=== PATIENT | male | born 1950 | race Caucasian/White ===

== ENCOUNTER 2017-04-17 07:08 | Inpatient (IN) | payer MEDICARE, OTHER ==
[~2017-04-17] VITALS: Ht 180.3 cm; Wt 56.3 kg
[2017-04-17] VITALS (15 sets, daily range): BP systolic 57–125; BP diastolic 43–90; PULSE 85–156; RESP 16–26; O2SAT 90–100
[2017-04-17] MEDS ORDERED: Azithromycin Inj 500 MG in Dextrose 5% w/Vial Mate 250 ML IV ONE (07:20)
[2017-04-17] MEDS ORDERED: MethylprednisoLONE Sodium Succinate 62.5 mg/mL 2 mL Inj IVPUSH ONE (07:20)
[2017-04-17] MEDS ORDERED: cefTRIAXone Inj 2,000 MG in Dextrose 5% Minibag Plus 50 ML IV ONE (07:20)
[2017-04-17] MEDS ORDERED: Adenosine 3 mg/mL 2 mL Inj ONE ×2 (07:31→07:33)
[2017-04-17 07:39] LABS: BASOPHILS % (AUTO) 0.1 % (0-3); EOSINOPHILS % (AUTO) 0 % (0-5); MONOCYTES % (AUTO) 16.2 % (4-12); Mean Corpuscular Hemoglobin 28.6 pg (27.0-35.0); Mean Corpuscular Volume 88.2 fL (81-100); Platelet Count 354 bil/L (150-400)
--- NOTE | 2017-04-17 07:45 | ED.REPORT ---
HPI-Dyspnea / Wheezing Date of Service Apr 17, 2017 ED Provider: Justo Sharma MD Patient is a 67 year old male with no known medical hx who presents to the ED via EMS intubated after he was found with severe respiratory distress with a possible CPR by family at home. Per family, pt has been experiencing SOB for the past 3 days. When pt's went to the garage to check on him this morning , he was found unresponsive. It is reported that the pt does not take care of his health and has not been to a doctor in quite some time. states that since the pt retired, he "lays on the couch and smokes." They also report that he has always been thin but for the past 5 years he doesn't eat and will only take meal replacement shakes. He does not have a known hx of DM or asthma. He has not been experiencing fever, vomiting, or any other symptoms. would like maximum interventions for the pt. He was given 20 etomidate and 75 succs (0705) en route. Nursing Notes Stated Complaint: UNRESPONSIVE Chief Complaint: Respiratory Distress Nursing Notes Reviewed: Yes Allergies: Coded Allergies: No Known Allergies (Unverified , 04/17/17) No Active Prescriptions or Reported Meds General Time Seen by MD: 07:14 Chief Complaint Other (Respiratory distress) Hx Obtained From: Spouse, Son, EMS Unable to Obtain Hx: Patient condition (Intubated ) Arrived By: Ambulance Sudden in Onset?: No Onset Occurred: 3 days ago Symptom Duration: Since onset Recent Healthcare: No recent doctor visit, No recent hospitalization Past Medical History Past Medical History Notes: Limited hx obtained from and son who report no known medical diagnoses. Smoking History Current Every Day Smoker Social History Other Social History: Good social support, Unable to Obtain History Past medical history, Past surgical history, Family history, Smoking history, Social history, Occupation, Ambulatory status Review of Systems Unable to Obtain ROS Patient condition, Intubated Physical Exam Initial Vital Signs Vital Signs (First) Date Time Temp Pulse Resp B/P Pulse Ox O2 Delivery O2 Flow Rate FiO2 04/17/17 07:21 36.3 156 18 125/90 Mechanical Ventilator 04/17/17 07:58 95 Initial VS: Reviewed, Vital signs abnormal Head / Eyes: Atraumatic, Normocephalic Abdomen / GI: Soft Alertness: Positive: Sedated Appearance / Presentation: Positive: Cachectic Neck: Atraumatic Arrived in C-collar for intubation en route Resp Distress / Stridor: Positive: Intubated Heart Rate / Rhythm: Positive: Tachycardia Peripheral edema 1+ at ankles Extremities cold Lower Extremity / Pelvis / MS: No deformity No calf swelling. Skin: Atraumatic, Dry Mental Status: Positive: Pharmacologically sedated Interpretation & Diagnostics Interpretation & Diagnostics: Discussed pt's case. Accepts admit. Lab Results Interpretation Result Diagram: 04/17/17 0729 04/17/17 1220 Test 04/17/17 07:29 04/17/17 08:00 White Blood Count 13.5th/mm3 (3.8-10.1) Red Blood Count 4.40mil/mm3 (4.40-5.80) Hemoglobin 12.6g/dL (13.8-17.2) Hematocrit 38.8% (41.0-50.0) Mean Corpuscular Volume 88.2fL (81-100) Mean Corpuscular Hemoglobin 28.6pg (27.0-35.0) Mean Corpuscular Hemoglobin Concent 32.5% (32.0-37.0) Red Cell Distribution Width 15.1% (12.3-15.4) Platelet Count 354bil/L (150-400) Neutrophils (%) (Auto) 74.0% (40-74) Lymphocytes (%) (Auto) 9.0% (14-46) Monocytes (%) (Auto) 16.2% (4-12) Eosinophils (%) (Auto) 0% (0-5) Basophils (%) (Auto) 0.1% (0-3) Prothrombin Time 12.6sec (8.1-12.5) Prothromb Time International Ratio 1.17ratio Magnesium Level 2.2mg/dL (1.6-2.6) Total Creatine Kinase 52U/L (21-232) Troponin T 0.010ug/L (0.0-0.011) Pro-B-Type Natriuretic Peptide 3608pg/mL (0-376) Prealbumin 5mg/dL (20-40) Triglycerides Level 93mg/dL (0-149) Procalcitonin 0.24ng/mL (0.00-0.08) Thyroid Stimulating Hormone (TSH) 3.740uIU/mL (0.450-4.500) Urine Color Dark yellow (YELLOW) Urine Appearance Cloudy (CLEAR,HAZY) Urine pH 6.0 (5.0-8.0) Urine Specific [place] 1.025 (1.003-1.035) Urine Protein 100mg/dL (NEG,TRACE) Urine Glucose (UA) Negativemg/dL (NEGATIVE) Urine Ketones Negativemg/dL (NEGATIVE) Urine Occult Blood Large (NEGATIVE) Urine Nitrite Negative (NEGATIVE) Urine Bilirubin Negative (NEGATIVE) Urine Urobilinogen 4.0mg/dL (NORMAL) Urine Leukocyte Esterase Negative (NEGATIVE) Urine RBC 11-50/hpf (0-2) Urine WBC 0-5/hpf (0-5) Urine Epithelial Cells Occasional/hpf (NONE-MOD) Urine Crystals Oxalic acid crystals (NONE Urine Bacteria Few/hpf (NONE-FEW) Urine Hyaline Casts 5/20/lpf (NONE) Urine Granular Casts None seen (NONE SEEN) Urine Waxy Casts None seen (NONE SEEN) Urine Red Blood Cell Casts None seen (NONE SEEN) Urine White Blood Cell Casts None seen (NONE SEEN) Urine Mucus Present (None Seen) Urine Trichomonas None seen (NONE SEEN) Urine Yeast None (NONE SEEN) Urinalysis Comment None Urine Culture Reflexed Not indicated ECG Interpretation ECG Interpretation: Sinus tachycardia rate 107 Left atrial enlargement RBBB Lateral infarct, age indeterminate Time: 07:42 Interpreted by: ED physician ABG Interpretation ABG Interpretation: Venous pH 7.128 pCO2 84 pO2 40.3 cHCO3- 26.6 cBase -5.5 Exam Performed by: [facility] pract Exam Interpreted by: ED physician X-Ray Chest Interpretation Chest Xray Interpretation: IMPRESSION: 1. The endotracheal tube tip is 3 cm above the angela. 2. Bilateral interstitial and airspace infiltrates, left greater than right, consistent with pneumonia. 3. Probable loculated pleural effusion seen upper thorax bilaterally. Dictated by: Donny Smith M.D. on 04/17/2017 at 8:35 Approved by: Donny Smith M.D. on 04/17/2017 at 8:38 View: Portable, 1 view Interpretation / Wet Read by: Interpret - Radiologist Chest Xray Interpretation: IMPRESSION: 1. Tubes and lines as described. 2. No pneumothorax. 3. Extensive consolidation of the lungs (left greater than right) is similar to the prior study. Dictated by: Erwin Biggs M.D. on 04/17/2017 at 8:27 Approved by: Erwin Biggs M.D. on 04/17/2017 at 8:30 View: Portable, 1 view Interpretation / Wet Read by: Interpret - Radiologist Procedures Central Line Placement Time: 08:41 Procedure Performed by: ED physician Consent / Setup / Site Prep: Informed consent provided, Consent from spouse , Time-out performed, Oxygen administered, Pulse oximeter applied, volunteer specialist applied, Hand hygiene observed, Max barrier precaution, Sterile drapes applied, Position Trendelenburg Skin Preparation Agent: Hibiclens - Chlorhexidine Local Anesthesia: Lidocaine 1% Procedural Sedation/Analgesia: Sedation: Versed (Due to intubation ) Side / Location / Ultrasound: Internal jugular right, Ultrasound assisted Catheter / Lumen / Technique: Triple lumen, Good blood return, Secured w catheter device Post-Procedure / Complications: Dressing placed, Condition improved, Tolerated procedure well, Patient stable Re-Eval/Medical Decision Med Decision/Clinical Course This gentleman arrives intubated. Family says that he retired 5 years ago and has spent most of the day every day on a couch in the garage smoking cigarettes. No desire or interest in following up with medical providers for any health condition. No significant weight loss over the past year. His oral intake has been much decreased over the past couple of days and finally only because he was unable to resist, para medics were called today. They find him in extreme respiratory distress and intubated in the field. Upon arrival I find him is a cachectic severely malnourished gentleman with a barrel chest comatose with an endotracheal tube in place. Attempts to hydrate him from his presumptively severely dehydrated state resulted in an inadequate blood pressure response therefore central line is established and norepinephrine was instituted in a drip. Chest x-ray shows multiple infiltrates, empiric anabiotic 's were started. Transferred to the ICU. Re-Evaluation/Progress #1: Time of Eval: 07:35 Re-Evaluation/Progress Note: Discussed pt's case with family who is now in the department. Discussed plan for maximum intervention and admission. Patient's understands and agrees with plan. All questions addressed at this time. Re-Evaluation/Progress #2: Time of Eval: 07:42 Re-Evaluation/Progress Note: Narrow complex tachycardia resolved with 6 followed by 12 Adenosine. Pt in Sinus tachycardia after expected pause. Re-Evaluation/Progress #3: Time of Eval: 09:08 Re-Evaluation/Progress Note: Updated family on pt's status. All questions addressed at this time. Consultation : Referral / Consult Name: Roxy Lowery MD Consulted With: Hospitalist Call Returned at: 09:11 Lpn Rn: Will see patient, Agrees with eval, Agrees with plan, Accepts admit Note: Discussed pt's case. Accepts admit. Counseled Regarding: Diagnosis, Need for admission Discharge & Departure Impression: Primary Impression: Respiratory failure Chronicity: acute Respiratory failure complication: unspecified whether with hypoxia or hypercapnia Qualified Code: J96.00 - Acute respiratory failure , unspecified whether with hypoxia or hypercapnia Additional Impressions: Severe dehydration Mass of left lung Acute CHF Congestive heart failure type: unspecified congestive heart failure type Qualified Code: I50.9 - Heart failure, unspecified Severe sepsis Coagulopathy Hematuria Disposition: ADMITTED TO HOSPITAL Discharge Condition All VS Reviewed: Yes Condition: Critical Referrals: NOPCP (PCP) Crit Care Except Billable Proc Time Spent: 30-74 minutes Services Performed: Patient management by me, Time spent at bedside, Reviewing test results, Reviewing imaging, Discussing patient care, Documentation in record, Time with fam/surrogate Critical Care Notes: 52 minutes Scribe Attestation Portions of this note were transcribed by Angelique Hale. I, Dr. Sharma personally performed the history, physical exam and medical decision-making; I reviewed and confirmed the accuracy of the information in the transcribed note. Signed by: Debora Rdz, 04/17/17 Justo Sharma MD Apr 17, 2017 07:45 ANGELIQUE HALE Apr 17, 2017 07:53 Lpn Rn: Will see patient, Agrees with eval, Agrees with plan, Accepts admit Note: Discussed pt's case. Accepts admit. Counseled Regarding: Diagnosis, Need for admission Discharge & Departure Impression: Primary Impression: Respiratory failure Chronicity: acute Respiratory failure complication: unspecified whether with hypoxia or hypercapnia Qualified Code: J96.00 - Acute respiratory failure , unspecified whether with hypoxia or hypercapnia Additional Impressions: Severe dehydration Mass of left lung Acute CHF Congestive heart failure type: unspecified congestive heart failure type Qualified Code: I50.9 - Heart failure, unspecified Severe sepsis Coagulopathy Hematuria Disposition: ADMITTED TO HOSPITAL Discharge Condition All VS Reviewed: Yes Condition: Critical Referrals: NOPCP (PCP) Crit Care Except Billable Proc Time Spent: 30-74 minutes Services Performed: Patient management by me, Time spent at bedside, Reviewing test results, Reviewing imaging, Discussing patient care, Documentation in record, Time with fam/surrogate Critical Care Notes: 52 minutes Scribe Attestation Portions of this note were transcribed by Angelique Hale. I, Dr. Sharma personally performed the history, physical exam and medical decision-making; I reviewed and confirmed the accuracy of the information in the transcribed note. Signed by: Debora Rdz, 04/17/17 Justo Sharma MD Apr 17, 2017 07:45 ANGELIQUE HALE Apr 17, 2017 07:53
[2017-04-17 07:51] LABS: INR 1.17 ratio
[2017-04-17 07:59] LABS: TROPONIN T 0.01 ug/L (0.0-0.011)
--- NOTE | 2017-04-17 08:01 | ABG ---
DateTimeAnalyzed 07:53:00 -_ pH ____7.128 - 7.320 7.420 pCO2 ___83.9__ -mmHg 41.0 51.0 pO2 ___40.3__ -mmHg 26.0 49.0 HCO3- ___26.6__ -mmol/L 22.0 26.0 ABE ___-5.5__ -mmol/L -2.0 2.0 tHb ___15.7__ -g/dL 12.0 18.0 O2Hb ___55.2__ -% COHb ____3.7__ -% 1.5 MetHb ____0.8__ -% 0.4 1.5 sO2 ___57.8__ -% 40.0 70.0 FIO2 __100.0__ -% SIMV __460.0__ -Rate PEEP ____5.0__ -cmH2O Set_RR ___20.0__ -b/min Drawn By lab - Date/Time Notified____ 08:01:00 -_ Oxygen Device 1 crossvent - Notified By jj - Notified Whom dr tiffany - B 755 -mmHg tO2 ___12.2__ -Vol% Good test N/A -
[2017-04-17 08:21] LABS: Magnesium 2.2 mg/dL (1.6-2.6)
[2017-04-17 08:25] LABS: APPEARANCE,URINE CLOUDY (CLEAR,HAZY); COLOR,URINE DARK YELLOW (YELLOW)
[2017-04-17 08:26] LABS: OCCULT BLOOD,URINE LARGE (NEGATIVE)
[2017-04-17] MEDS ORDERED: Norepinephrine 8,000 mCg/250 mL NS Premix IV ONE (08:36)
--- NOTE | 2017-04-17 08:40 | DRSVH ---
PROCEDURE: X-RAY CHEST ONE VIEW, PORTABLE ([id number]) INDICATIONS: intubated TECHNIQUE: One view of the chest was acquired. COMPARISON: None. FINDINGS: Surgical changes and devices: There is a symmetrical tube with the tip 3 cm above angela. Lungs and pleura: Bilateral diffuse interstitial and airspace opacities, left with the right, consis tent with pneumonia. Possible loculated pleural effusions in the left and right upper thorax. No pneu mothorax. Mediastinum: Mediastinal contours appear normal. Heart size is normal. Bones and chest wall: No suspicious bony lesions. Overlying soft tissues appear unremarkable. IMPRESSION: 1. Endotra Ultravist 3 cm above the angela. 2. Bilateral interstitial and airspace infiltrates, left greater than right, consistent with pneumoni a. 3. Probable loculated pleural effusion seen upper thorax bilaterally. Dictated by: Donny Smith M.D. on 04/17/2017 at 8:35 Approved by: Donny Smith M.D. on 04/17/2017 at 8:38
[2017-04-17] MEDS ORDERED: 0.9% Sodium Chloride 1,000 ML IV ONE ×2 (09:02→10:25)
[2017-04-17] MEDS ORDERED: levoFLOXacin Inj 750 MG in IV Premix 1 EACH IV ONE (09:05)
[2017-04-17] MEDS ORDERED: Vancomycin Dose per Pharmacist XX ONE (09:05)
[2017-04-17] MEDS ORDERED: Piperacillin-Tazo 3.375 Gm Inj 3.375 GM in Dextrose 5% Minibag Plus 50 ML IV ONE (09:05)
[2017-04-17] MEDS ORDERED: Vancomycin Inj 1,250 MG in 0.9% Sodium Chloride 250 ML IV ONE (09:15)
[2017-04-17] MEDS: Norepineph 8,000 mCg/250 mL NS 8,000 MCG in IV Premix 1 EACH IV SCH ×2 (09:17→16:56)
[2017-04-17] MEDS ORDERED: Atropine 1 mg/10 mL (Code) Syringe ONE (09:18)
--- NOTE | 2017-04-17 09:31 | DRSVH ---
PROCEDURE: X-RAY CHEST ONE VIEW, PORTABLE ([id number]) INDICATIONS: post central line TECHNIQUE: One view of the chest was acquired. COMPARISON: [facility], CR, XR CHEST 1VW (PORTABLE), 04/17/2017, 7:21. FINDINGS: Surgical changes and devices: An endotracheal tube is identified with the tip overlying the trachea, approximately 3.4 cm above the level of the angela. A right-sided central line catheter is identifie d with its tip positioned at the atriocaval junction. A nasogastric tube is seen extending below the diaphragm. Lungs and pleura: The aeration of the lungs is similar to the prior study with extensive left pulmona ry consolidation that is more prominent within the left upper lobe. There probably is a left-sided p leural effusion and probably are calcified pleural plaques. Consolidation of the right lung apex als o is present with additional patchy areas of airspace disease and interstitial prominence throughout the lungs, which is slightly more prominent along the periphery. Blunting of the right costophrenic angle is present. No definite pneumothorax is appreciated. Mediastinum: The cardiomediastinal silhouette is largely obscured by extensive urinary consolidation. The heart probably is not enlarged. Bones and chest wall: No suspicious bony lesions. Overlying soft tissues appear unremarkable. IMPRESSION: 1. Tubes and lines as described. 2. No pneumothorax. 3. Extensive consolidation of the lungs (left greater than right) is similar to the prior study. Dictated by: Erwin Biggs M.D. on 04/17/2017 at 8:27 Approved by: Erwin Biggs M.D. on 04/17/2017 at 8:30
[2017-04-17] MEDS ORDERED: Sodium Chloride LOK Flush 10 mL Syringe IVFLUSH PRN ×2 (10:35)
--- NOTE | 2017-04-17 10:44 | DRSVH ---
PROCEDURE: CT CHEST WITHOUT CONTRAST ([id number]) INDICATIONS: eval for pulmonary process TECHNIQUE: Noncontrast 5 mm thick sections acquired from the pulmonary apices to the posterior costophrenic angl es. 7 mm thick coronal and sagittal MIP reformats were then acquired. For radiation dose reduction, the following was used: automated exposure control, adjustment of mA and/or kV according to patient size. COMPARISON: None. FINDINGS: Image quality: Adequate. Lungs and pleura: There is a posterior medial left-sided hydropneumothorax with air-fluid level (se 3 im 24). There is a second loculated anterolateral hydropneumothorax. Calcified pleural plaques adjac ent to both sites. There is dense consolidation involving nearly the entire left lung with multiple c entral areas of cavitation the largest of which measures 1.8 CM. There is diffuse interstitial thicke ruchi with focal areas of consolidation throughout the right lower lobe. Bilateral emphysema and biapi sally scarring. There is a possible right apical cavity lesion containing debris or a solid component w hich overall measures 1.7 x 1.9 CM (se 3 im 15). Mediastinum: There is pneumomediastinum greatest superiorly. Heart size is normal. Trace pericardial effusion. There is a mass at the right posterior lateral aspect of the esophagus which measures 2.1 x 2.9 CM (se 2 im 33). Thoracic aorta and central pulmonary arteries are normal in size. Esophagus i s normal in caliber. No hiatal hernia. ET tube, enteric tube, and right IJ CVC with tips in appropr iate locations. Bones and chest wall: No suspicious bony lesions. No vertebral body compression fractures. No axil kaylin or supraclavicular adenopathy by size criteria. Thyroid gland not included on the examination. Abdomen: Visualized upper abdominal solid organs and bowel loops appear normal in the absence of con trast. IMPRESSION: 1. Small anterolateral and posterior medial loculated hydropneumothoraces with associated pleural sally cifications. Moderate pneumomediastinum. 2. Dense consolidation involving the majority of the left lung with cavitation most consistent with s evere pneumonia. There is lesser, moderate consolidation in the dependent right lower lobe which may represent further infection or aspiration. 3. Emphysema with biapical scarring and possible right apical cavitary lesion containing solid compon ent or debris. 4. Small mass at the right lateral aspect of the mid esophagus may represent lymphadenopathy. A CT wi th contrast will be needed for more definitive evaluation. 5. Support lines in the expected locations. Dictated by: Uriel Vargas M.D. on 04/17/2017 at 10:29 Approved by: Uriel Vargas M.D. on 04/17/2017 at 10:42
[2017-04-17] MEDS ORDERED: ASPI-973 PO (11:08)
--- NOTE | 2017-04-17 11:09 | NUR ---
Admit nurse: Admit completed with pt's , pt intubated and unable to provide any info. Per , pt doesn't take any home medications, just takes "regular aspirin a couple of times a day when he has a headache." reports that pt has a poor appetite for the last five years, drinks ensure twice a day and a lot of coffee.
[2017-04-17] MEDS ORDERED: fentaNYL 2,500 mCg/250 mL 2,500 MCG in IV Premix 1 EACH IV PRN (11:10)
[2017-04-17] MEDS ORDERED: fentaNYL-PF 50 mCg/mL 2 mL Inj IVPUSH PRN (11:10)
[2017-04-17] MEDS ORDERED: Lidocaine 1%-Epi 1:100,000 50 mL Inj NERVEBLOCK ONE (11:45)
[2017-04-17] MEDS: Pantoprazole 80 mg/100 mL NS Bolus IV ONE ×4 (12:05→15:08)
[2017-04-17] MEDS ORDERED: Pantoprazole 8 mg/Hr Infusion IV SCH ×2 (12:05)
[2017-04-17] MEDS: Propofol Inj 1,000,000 MCG in IV Premix 1 EACH IV SCH (12:09)
[2017-04-17] MEDS: Chlorhexidine 0.12% 15 mL Oral Solution MT SCH ×3 (12:30→21:01)
--- NOTE | 2017-04-17 13:24 | CONS ---
[address] [address] CONSULTATION REPORT PATIENT: GENET DIAZ : 1950 MR#: [id number] ADMIT: 04/17/2017 JOB ID: [id number] INFECTIOUS DISEASE CONSULTATION: DATE OF SERVICE: 04/17/2017 REQUESTING PHYSICIAN: Roxy Lowery MD I thank Dr. Lowery for this timely consult. REASON FOR CONSULTATION: Respiratory failure, bilateral pulmonary infiltrates and shock. HISTORY OF PRESENT ILLNESS: The patient is an unfortunate, 67-year-old gentleman with a long history of smoking cigarettes and not much else in the way of available history. His and son who were in the room with him supply the details as the patient presented with respiratory failure, was intubated in the ER earlier today. He is now sedated and on the ventilator and can offer no history. The and son relate that five years ago he retired from the [employer] here in [facility]. At that time, he weighed about 165 pounds, was in quite good health despite his heavy smoking. He was able to walk for miles while they were out hunting and in general was in reasonably good health. Unfortunately starting with his care home five years ago, he according to his , "stopped doing everything." The patient basically just spent the next five years on the couch, smoking 2-3 packs of cigarettes a day. There is no history of tobacco use nor illicit drugs. He has not traveled anywhere and basically has not done anything it sounds like, over the past five years. His reports that during this period of inactivity that he progressively lost weight, became weaker and became less capable of any activity. She reports that this was a gradual five year decline which started to get worse about a year ago when he lost even more weight and became even more short of breath. Over the last couple of weeks he has had what was termed a cold which was associated with worsening respiratory difficulties. The says that her refused all entreaties to see a doctor or go to the hospital and has not seen a doctor since he had some minor shoulder surgery about three decades ago. His only medicine is aspirin which he apparently takes in fairly large doses for a variety of aches and pains but no other meds prescription or otherwise. With respect to symptoms, the and son report that the patient has really not complained of much other than progressive weakness, shortness of breath and at times, a cough. He has had a generally poor appetite and has been losing weight steadily and more rapidly recently. He has not apparently complained at all of headaches, sore throat, hemoptysis or GI symptoms, other than he has told his that he has been constipated at times. There has been no report of urinary complaints and just as mentioned, generalized weakness, weight loss, shortness of breath and some cough. The family does report that in the day or so prior to his being brought to the ER for respiratory failure that he had been somewhat confused, but up until that point had been completely sharp, and I spoke to his grandson about this too and he said that he was able to carry on a sustained conversation which made a lot of sense as recently as a few days ago. PAST MEDICAL HISTORY: Completely unknown other than he had some minor right shoulder surgery in the 80s. MEDICATIONS: His only medicine as mentioned is aspirin which he apparently takes in fairly large quantities from time to time. SOCIAL HISTORY: The patient is a lifelong heavy smoker, never consumed alcohol. Did not serve in the . Has not been overseas, and has really not lived anywhere but this local area. He was born in [place], [place] and apparently worked his entire career at [employer]. He lives with his in [place] at this point. FAMILY HISTORY: As far as we can determine is negative for TB; and that is according to his son and his . The patient obviously cannot speak to us and that is negative in first and second-degree relatives. REVIEW OF SYSTEMS: Cannot be done as the patient is intubated and sedated. PHYSICAL EXAMINATION: Reveals a cachectic gentleman who looks really catastrophically ill. He is afebrile, temperature 36.1, pulse 97. He is on the ventilator. Blood pressure is low as 70/47 earlier. He is now on norepinephrine at moderately high doses about 0.2 mcg/kg minute. He is on 60% and 5 of PEEP on the ventilator. Examination of the head shows tremendous temporal wasting and the patient's overall appearance is just skeletal. His BMI is recorded at 16.5 and I am inclined to doubt that, as he looks even more malnourished. His eyes are sunken. There is no conjunctivitis or scleral icterus seen. His pupils are equal. His nose appears normal. I do not see any eschars. Oral endotracheal tube/orogastric tube in good position. His neck is extraordinarily thin without adenopathy or obvious JVD. His neck is reasonably supple. Lungs: Scattered rales and rhonchi throughout both lung george. The left lung sounds worse than the right. Cardiac tones distant. Regular rate and rhythm. Abdomen is extremely wasted and thin. No organomegaly is appreciated. No masses can be palpated. There is no ascites obviously. No inguinal adenopathy. His penis and scrotum appear normal. Coello catheter is present. His extremities are diffusely wasted; both upper and lower extremities. No synovitis is seen. He has some venous stasis changes in lower extremities bilaterally. He has really no dorsal pedal or posterior tibial pulses in his feet. Both feet are cool with poor capillary refill. Neurologic exam cannot be done. The patient overall is unkempt and appears at least recently to have had poor hygiene. LABORATORY DATA: Labs include white count 13.5 with a monocytosis of 16% monos. His creatinine is 0.93. Potassium 5.4. LFTs completely normal interestingly. BNP 3608. Procalcitonin first measure 0.24. Urinalysis: No white cells. He does have hematuria of interest 11-50 red cells. His INR is 1.17. Micro studies include two blood cultures done early this morning and a sputum which has been sent and is pending. IMAGING: We reviewed the chest x-rays and chest CTs in great detail with the Pulmonary Attending and I reviewed these myself on the view screen as well. His chest x-ray and CTs of the chest are incredibly abnormal. He appears to have loculated hydropneumothoraces and associated pleural calcifications, especially on the left. He has a pneumomediastinum as well. There is a diffuse infiltrate that involves almost all the left lung with cavities noted. There is considerable consolidation in the right lung as well with some cavities as well but it is less severe. Emphysema with giant bullae is obviously seen. IMPRESSION: This is an unfortunate gentleman who over the last five years since his care home has had a dramatic decline with progressive weakness, weight loss and respiratory insufficiency. He now presents with a more abrupt process associated with respiratory failure requiring intubation as well as hypotension. Owing to the fact he has had no laboratory studies in greater than 30 years and has not seen a physician, this is truly a black box and that we really have little to operate on. In discussing this case in detail with the Pulmonary attending, we think numerous things are possible including chronic aspiration pneumonia with empyema as well as the possibility of tuberculosis, but there is no exposure for tuberculosis but his chest CT and presentation would not be inconsistent with this process. Other things I would be especially concerned about here would be Nocardia or actinomycosis. If indeed there is an empyema present, then we would be concerned about classic organisms including Streptococcus and especially the Streptococcus milleri group as well as anaerobes. Empyema obviously would require drainage. Additionally I think there is a possibility of a Staph aureus component to this cavitary extensive pneumonia. Other less likely possibilities might include cryptococcal pneumonia and even Pneumocystis can occasionally be seen with this degree of malnutrition though the chest x-ray would be not classic for that process. Fungal processes such as Aspergillus are also possible in a chronic smoker and will need to be addressed. RECOMMENDATIONS: 1. Will be checking basic labs including HIV, hep C, hep B, TSH, and a cortisol. 2. TB studies will be ordered and these will include sputum AFB x3 but with the 1st and 2nd samples to be sent for nucleic acid amplification. These should be sent as soon as possible. 3. Galactomannan will be ordered on the off chance that we have a significant fungal process or Aspergillus process. 4. Fungitell will be ordered. 5. QuantiFERON Gold will be ordered. 6. Sputum Gram stain has already been ordered and is pending. 7. Cryptococcal antigen. 8. MRSA screen of the nares will be ordered. 9. ANCA will be ordered on the off chance that this represents Jonh's granulomatosis though I do not think that is a likely diagnosis here but needs to be excluded. 10. In terms of antibiotics, the patient has been started on azithromycin which I think is unlikely to be of benefit and I would clean up his antibiotics which currently appear to include azithromycin, ceftriaxone, levo, vanco, Zosyn, and instead consolidate to ertapenem as our sole antibiotic while we await additional data. 11. Will continue to follow this extremely ill patient with you. I have discussed this case in detail with the ICU nurse, Respiratory Therapy, the Pulmonary attending, the hospitalist, and the family. I have also recommended the patient be moved to TB isolation until we have back our first nucleic acid implication at which time TB isolation can be continued. The literature suggests that a TB nucleic acid amplification is as good as three sputum AFBs for DC'ing isolation. MTDD
[2017-04-17] MEDS ORDERED: Ondansetron 2 mg/mL 2 mL Inj IVPUSH PRN (14:00)
--- NOTE | 2017-04-17 14:00 | ABG ---
DateTimeAnalyzed 13:57:12 -_ pH ____7.340 - 7.350 7.450 pCO2 ___50.6__ -mmHg 35.0 45.0 pO2 157 -mmHg 80.0 100 HCO3- ___27.3__ -mmol/L 22.0 26.0 ABE ____1.4__ -mmol/L -2.0 2.0 tHb ___10.3__ -g/dL 12.0 18.0 O2Hb ___98.3__ -% COHb ____2.2__ -% 1.5 MetHb ____0.0__ -% 0.4 1.5 sO2 __100.0__ -% 95.0 AaDpO2 __498.6__ -mmHg FIO2 __100.0__ -% Pressure_Support ___30.0__ -cmH2O PEEP ____5.0__ -cmH2O Set_RR 20 -b/min Drawn By nb - Date/Time Notified____ 14:00:00 -_ Oxygen Device 1 VENTILATOR - Notified By ams - Notified Whom dr mathew - K+ ____3.3__ -mmol/L 3.5 5.0 Good test _Positive -
--- NOTE | 2017-04-17 14:34 | DRSVH ---
PROCEDURE: X-RAY CHEST ONE VIEW, PORTABLE ([id number]) INDICATIONS: chest tube placement TECHNIQUE: One view of the chest was acquired. COMPARISON: Merged With [facility], CR, XR CHEST 1VW (PORTABLE), 04/17/2017, 7:21. [facility] pital, CT, CT CHEST WO CON, 04/17/2017, 10:23. Merged With [facility], CR, XR CHEST 1VW (PORTABLE), , 9:13. FINDINGS: Surgical changes and devices: Endotracheal tube, nasogastric tube and right IJ central line are in ex pected position. There is a thoracostomy tube projecting to the left lower hemithorax. Lungs and pleura: There is probable small left residual basilar pneumothorax. The left hemithorax i s near completely opacified. There are diffuse bilateral airspace infiltrates. Small bilateral perfus ions are present. Mediastinum: Lucencies along the trachea is consistent with pneumomediastinum. Heart is partially ob scured. Bones and chest wall: There is a subcutaneous emphysema. No suspicious bony lesions. Overlying soft tissues appear unremarkable. IMPRESSION: 1. Bilateral airspace infiltrates, left within the right. There is near complete opacification of the left hemithorax. The radiographic findings are most consistent with pneumonia although superimposed pulmonary edema could be present. 2. Probable small left basilar pneumothorax. 3. Small bilateral pleural effusions. 4. Support lines/tubes in expected position. 5. Pneumomediastinum and subcutaneous emphysema. Dictated by: Donny Smith M.D. on 04/17/2017 at 14:22 Approved by: Donny Smith M.D. on 04/17/2017 at 14:32
--- NOTE | 2017-04-17 14:43 | NUR ---
NUTRITION ASSESSMENT: ASSESS: Pt is a 67yo M admitted to CCU for respiratory distress. Currently intubated and sedated. Per pt's he has had poor appetite and PO intake x5 years and only drinks 2 Ensure/day. Current wt is 49kg, BMI 15.1kg. Reported UBW ~5years ago was 75kg. Pt has had 34.6% wt loss x 5 years. He has been NPOx1 day. PMHX: smoking LABS: Reviewed. K 5.4, Cl 90, Bun 34, Glu 166, Ca 8.1, Alb 2.7 MEDS: Reviewed. GI: no BM yet SKIN: Abel 8, wound care pending CURRENT WTS: 49.2kg, BMI 15.6kg/m2, IBW: 75.4kg, UBW: 75kg, 34% wt loss x5 years DIET: NPO EST. NEEDS: vent/ wt gain Kcals: 1230-1720kcal/day (25-35kcal/kg) Pro: 75-90g/day (1.5-1.8g/kg) Fluids: ~1230-1475ml/day (25-30ml/kg) NUTRITION DIAGNOSIS: 1.) Inadequate oral intake related to decreased ability to consume sufficient energy as evidenced by current NPO status 2.) Severe pro/kcal malnutrition related to unknown etiology as evidence by reported poor PO intake x5 years, BMI of 15kg/m2 and 34% wt loss x5 years NUTRITION INTERVENTION: 1.) Due to history of poor PO intake, recommend start TF of Jevity 1.5 @ 10ml and hold x24hrs. Pts stomach is likely not use to receiving large amounts of food/fluids at one time so will need to advance TF slowly and monitor labs and GI tolerance. Recommend advance by 10ml q 8 hrs until reach goal rate of 50ml/hr x22hrs to provide 1650kcal and 70gpro (100% kcal and 93% pro needs) 2.) Adjust goal rate based on daily propofol, MONITOR / EVAL: NPO/vent, wt, TF start?, labs, GI, POC, nutrition status. Will continue to monitor per high nutrition risk guidelines
--- NOTE | 2017-04-17 15:05 | PCM.PROC ---
Procedure Note Date of Service: Apr 17, 2017 Pre Procedure Diagnosis: Acute respiratory failure with pneumothorax and pneumomediastinum Septic shock Multilobar pneumonia Post Procedure Diagnosis: Same Procedure: Left thoracostomy tube Provider and Director Of Audiology: Attending: Ajit Anne M.D. Resident: Christofer Jackson DO, R3 Indication for Procedure: Acute respiratory failure with pneumothorax and pneumomediastinum with poor ventilation despite high peak pressures Findings: Patient's plateau pressures decreased from 40-35 to 30 after the tube thoracostomy with tidal volume of 400 Procedural Analgesia: 1% lidocaine with epinephrine: 15 cc used to infiltrate and anesthetize the region Patient is also sedated with propofol and fentanyl Procedure Details: Consent was obtained from the patient's . Risks of massive bleeding, perforation and were discussed. All questions asked and answered. agreed to proceed with the procedure as planned. A time-out was completed verifying correct patient, procedure, site, positioning, and special equipment.. The patient was positioned appropriately for chest tube placement. The patients left chest was prepped and draped in sterile fashion with Chlorhexidine swabs. 1% Lidocaine with Epi was used to anesthetize the surrounding skin area. A 2 cm skin incision was made in the mid-axillary line at the 4th ICS. Utilizing blunt dissection a subcutaneous tunnel was created cephalad just adjacent to the superior rib. The pleural space was entered bluntly and large gush of air was observed. A finger was inserted into the pleural space to check for anatomy and guide tube insertion. Patient was noted have very thick adhesions which were not taken down because of concern for hemorrhage. At least one loculated empyema was entered and evacuated. A 32F thoracostomy tube was inserted and positioned appropriately. The tube was guided superiorly and posteriorly to attempt to break up loculations multiple times. Copious pus was suctioned superiorly. The chest tube was then sutured securely to the skin at 8 cm with 0-vicryl and a sterile dressing applied. A pleurevac was attached to the chest tube and a chest x-ray obtained. Attending was present for the entire procedure. Subcutaneous air present with large air leak on -20 cm water suction. 50 mL of purulent white blood-tinged fluid was obtained and sent for appropriate studies. Impression Left empyema with necrotic pneumonia. Specimen: Thoracic aspirated fluid was sent to lab for pathology and culture Post Procedure Plan: Continue suction and monitor respiratory status. Repeat CXR after procedure Attending Statement Total time of procedure 40 minutes spent manipulating chest cavity with index finger as well as chest tube to breakout pockets of loculated fluid. Merlin Jackson DO Apr 17, 2017 15:05 Ajit Anne MD Apr 17, 2017 16:09
[2017-04-17] MEDS: Ertapenem Inj 1,000 MG in 0.9% Sodium Chloride 50 ML IV SCH (15:06)
[2017-04-17 15:22] LABS: BASOPHILS % (AUTO) 0 % (0-3); EOSINOPHILS % (AUTO) 0 % (0-5); Mean Corpuscular Hemoglobin 28.3 pg (27.0-35.0); Mean Corpuscular Volume 87.8 fL (81-100); Platelet Count 306 bil/L (150-400)
--- NOTE | 2017-04-17 15:25 | PCM.PNMED ---
Subjective Date of Service Apr 17, 2017 Subjective Mr Purdy is a 67 yo M with history of tobacco dependence and probable COPD who presented to the ED by EMS intubated after being found by family to be in respiratory distress. Majority of the note is from ED report and family. Per family members, patient had been experiencing SOB for the past 3-4 days. reports that she has had a cold the past few weeks and patient did have URI like symptoms, but is unable to provide more specific ROS. They note that when patient's went to the garage earlier this morning, she found the patient down and unresponsive. There was some note of possible CPR prior to EMS arrival. Per family, patient has been declining for the past 5 years and has lost almost 30-40 lbs. They state that he previously was able to walk miles without difficulties, but in the past year, he has declined in conditioning. They state that recently, he has been laying on the couch most days and still smoked heavily. He also had been having decrease appetite. In the ED, patient was noted to have received Etomidate and Succinylcholine for his field intubation. A right IJ central line was placed in the ED and he was started on IV Ceftriaxone and Azithromycin for presumed CAP. He continued to be hypotensive and tachycardic despite fluid resuscitations. PaO2 in the emergency department was 40. Admittedly upon arrival to the ICU ventilator was adjusted to low tidal volume ARDS strategy for severe ARDS. Patient underwent emergency left 32 [place]gu[place] thoracostomy tube placement as plateau pressures were as high as 40. A gush of air was obtained upon entering the left chest cavity. Multiple thick adhesions and white thick pus with minimal blood was obtained and sent for appropriate studies. Care was taken not to take down the thick adhesions to avoid massive hemorrhaging. Patient has a large air leak as suspected from his pneumothorax and positive pressure. Follow-up chest x-ray showed some improvement with proper thoracostomy tube placement. Plateau pressures decreased to 30 with a similar tidal volume 400. Patient was placed on pressure control of 30 and continues to have a average tidal volume of 400. Follow-up PaO2 was 157. Exam Vital Signs Vital Sign - Last Date Time Temp Pulse Resp B/P Pulse Ox O2 Delivery O2 Flow Rate FiO2 04/17/17 13:33 81 97/64 100 100 04/17/17 11:25 36.4 22 Mechanical Ventilator Exam Gen.: Frail cachectic elderly male who is intubated and sedated, occasionally opens eyes to noxious stimuli HEENT: Atraumatic, normocephalic, sclera nonicteric, Trach tube in place, poor dentition. PERR L. Pupil is 2 mm bilaterally. Neck: Supple, trachea deviated to the right, no JVD noted CV: Tachycardic w/ regular rhythm, soft systolic murmur Respiratory: Large barrel chested, diffuse bilateral rhonchi and expiratory wheezing with diffuse scattered crackles, decreased lung sounds on the left, Ventilating at rate of 24 Abdomen: Soft, nondistended, decreased bowel sounds, no rashes noted MSK: Extremities are thin and frail, no swollen or tender joints. Neuro: Sedated patient. Localizes to pain. Skin: Cool. Diffusely dry and flaking, early skin breakdown noted on bilateral heel pad and sacral. No rash. Capillary refill 3-4 seconds. Skin tenting. IVs and Medications Medications Reviewed: Medications were reviewed in detail Lab and Diagnostics Result Diagram: 04/17/17 0729 04/17/17 1220 X-Rays, CTs and MRIs PROCEDURE: CT CHEST WITHOUT CONTRAST ([id number]) IMPRESSION: 1. Small anterolateral and posterior medial loculated hydropneumothoraces with associated pleural calcifications. Moderate pneumomediastinum. 2. Dense consolidation involving the majority of the left lung with cavitation most consistent with severe pneumonia. There is lesser, moderate consolidation in the dependent right lower lobe which may represent further infection or aspiration. 3. Emphysema with biapical scarring and possible right apical cavitary lesion containing solid component or debris. 4. Small mass at the right lateral aspect of the mid esophagus may represent lymphadenopathy. A CT with contrast will be needed for more definitive evaluation. 5. Support lines in the expected locations. PROCEDURE: X-RAY CHEST ONE VIEW, PORTABLE ([id number]) IMPRESSION: 1. Tubes and lines as described. 2. No pneumothorax. 3. Extensive consolidation of the lungs (left greater than right) is similar to the prior study. Additional Diagnostics DateTimeAnalyzed 07:53:00 -_ pH ____7.128 - 7.320 7.420 pCO2 ___83.9__ -mmHg 41.0 51.0 pO2 ___40.3__ -mmHg 26.0 49.0 HCO3- ___26.6__ -mmol/L 22.0 26.0 ABE ___-5.5__ -mmol/L -2.0 2.0 tHb ___15.7__ -g/dL 12.0 18.0 O2Hb ___55.2__ -% COHb ____3.7__ -% 1.5 MetHb ____0.8__ -% 0.4 1.5 sO2 ___57.8__ -% 40.0 70.0 FIO2 __100.0__ -% SIMV __460.0__ -Rate PEEP ____5.0__ -cmH2O Set_RR ___20.0__ -b/min Assessment & Plan Septic shock, POA Patient presented to the floor intubated and sedated. He was noted to have persistent hypotension despite 3L of NS in the ED. His Chest xray was grossly abnormal and is suspicious but not limited to empyema, chronic aspiration multilobar pneumonia, fungal/atypical pneumonia, and tuberculosis. Lactate was noted to be 6.9 on admission which decreased upon repeat lab draw. Will plan to continue early goal directed therapy with aggressive fluid resuscitation Patient was started on IV Ceftriaxone and Azithromycin in the ED on 04/17. ID recommended ertapenem. Will need to move patient to a neg pressure room and rule out TB. Blood cultures and sputum cultures pending. Blood pressure supports with Levophed at ideal body weight and titrated to MAP > 65 Acute hypoxic hypercapnic respiratory failure severe ARDS, POA Likely due to his septic shock and impressive pulmonary infection Plateau pressures improved after left thoracostomy tube placement Daily ABGs and CXR while on ventilator Continue sedation with Propofol and Fentanyl Multilobar pneumonia, POA Likely community acquired or atypical since patient has not had any healthcare contact for years per family. Will defer abx selection to ID team. Further treatment as above. Tension Left Pneumothorax and Pneumomediastinum, POA As noted on chest CT, L>R. Patient also has pleural plaques suspicious for asbestosis and emphysema, consistent with his smoking history. Patient improved after left thoracostomy tube placement. Possible GI Bleed, POA GI bleed vs hemoptysis Patient was noted to have pink tinged sputum on admission. There is concern for GI bleed with his anemia. Family reports that patient does not consume much alcohol, but does take Aspirin frequently and Cris seltzer. Another possibility is hemoptysis from his current infection. Patient is typed and crossed. EGD will be performed with bronchoscopy if indicated. Cachexia with severe protein calorie malnutrition and anemia, POA Patient is frail and cachetic and per family, has lost 1/3 of his weight of the last year. Prealbumin was 5 on admission. There is early skin breakdown noted. Dietary consult and early tube feeding planned when patient is more stable. Tobacco abuse, POA Will encourage cessation. Lines: Right IJ line placed by the ED on 04/17, Coello catheter in place since 04/17 Diet: Nothing by mouth while intubated Pain Evaluation: Other (sedated) VTE Prophylaxis: Sub-Q Enoxaparin VTE Mechanical Devices: Intermittant Pneumatic CD Resuscitation Status: CPR: Attempt Resuscitation Time spent Total time spent in direct patient care thus far independent of all procedures 150 minutes. Attending Statement Patient has a large of family. I have personally updated the family many times throughout the day. They understand the patient is critically ill with 80% chance of dying. All questions asked and answered. I spoke personally with the radiologist's and other providers. Patient seen and examined. Pertinent labs and imaging reviewed findings reviewed and discussed with the resident. Amendments made verbally with the resident and/or directly on this document. Agree with the above Merlin Jackson DO Apr 17, 2017 14:01 Ajit Anne MD Apr 17, 2017 16:33 Ajit Anne MD Apr 17, 2017 16:33
[2017-04-17 15:52] LABS: MONOCYTES % (AUTO) 4 % (4-12); NEUTROPHILS % (AUTO) 70 % (40-74)
[2017-04-17 16:16] LABS: BFWBC 47500 /mm3; MONOCYTES,BODY FLUID 14 %; OTHER CELLS,BODY FLUID 0
--- NOTE | 2017-04-17 16:26 | PCM.HPMED ---
Subjective Date of Service Apr 17, 2017 Primary Provider: Admitting Physician: Roxy Lowery MD Primary Care Physician: Nopronald Attending Physician: Roxy Lowery MD Admit Status: From the Emergency Department, Full Admit, Admit to Yellow Team, Critical Care Chief Complaint: Severe respiratory distress History of Present Illness: This is a 67-year-old male who has not seen a doctor for several decades. He was having progressive respiratory distress and family called 911. Aware that patient had any fevers or chills. He is a heavy smoker sometimes anywhere from 2-3 packs per day. He is not use any alcohol. He is not on any medications. Per family no recent history of chest pain. He has Been retired for 5 years. He has been having increased weight loss particularly over the past year. Otherwise states that he has been always very thin. 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 He has not had any known exposure to asbestos. He has used a lot of aspirin daily over the past month or so. No alteration in bowel movements per that she is aware of. No nausea or vomiting. He has had no recent travel. His evaluation in the emergency room includes a white count of 13.5 with 74% polys. Lactic acid level is 6.9. LFTs are normal. Her ABG in the emergency room was pH 7.128 PCO2 84 PO2 [address] of chest without contrast reveals all anterolateral posterior medial loculated hydropneumothorax sees with associated pleural calcifications. Moderate pneumomediastinum. Consolidation involving majority of left lung with cavitation most consistent with severe pneumonia. There is lesser moderate consolidation dependent right lower lobe. At the scene with biapical scarring and possible right apical cavitary lesion containing solid component or debris. All mass at the right lateral aspect of the midesophagus made represent lymphadenopathy. Review of Systems: All other review of systems reviewed with and are negative except for as in history of present illness. Allergies Coded Allergies: No Known Allergies (Unverified , 04/17/17) Home Medications None PMH Tobacco dependence Family History No known family history of respiratory problems. Social History Hx Alcohol Use: No Hx Substance Use: No (HEAVY COFFEE DRINKER) Smoking Status: Current Every Day Smoker (2-3 packs per day) Living Arrangement: with Family Exam Vital Signs Vital Sign - Last Date Time Temp Pulse Resp B/P Pulse Ox O2 Delivery O2 Flow Rate FiO2 04/17/17 13:33 81 97/64 100 100 04/17/17 11:25 36.4 22 Mechanical Ventilator Exam Constitutional: Intubated 67-year-old male who is very cachectic Head: Normocephalic atraumatic Chest: Diffuse rhonchi and scattered wheezing Cor: Regular rate and rhythm S1-S2 Abdomen: Scaphoid bowel sounds hypoactive Extremities: No pedal edema noted Psych: Unable to assess skin: No rashes Neuro: patient does spontaneously all extremities to pain stimuli but is sedated secondary to being on a ventilator Lab and Diagnostics Labs Laboratory Tests 72 Hours Test 04/17/17 07:29 04/17/17 08:00 04/17/17 10:50 04/17/17 12:20 White Blood Count 13.5th/mm3 (3.8-10.1) Red Blood Count 4.40mil/mm3 (4.40-5.80) Hemoglobin 12.6g/dL (13.8-17.2) Hematocrit 38.8% (41.0-50.0) Mean Corpuscular Volume 88.2fL (81-100) Mean Corpuscular Hemoglobin 28.6pg (27.0-35.0) Mean Corpuscular Hemoglobin Concent 32.5% (32.0-37.0) Red Cell Distribution Width 15.1% (12.3-15.4) Platelet Count 354bil/L (150-400) Neutrophils (%) (Auto) 74.0% (40-74) Lymphocytes (%) (Auto) 9.0% (14-46) Monocytes (%) (Auto) 16.2% (4-12) Eosinophils (%) (Auto) 0% (0-5) Basophils (%) (Auto) 0.1% (0-3) Prothrombin Time 12.6sec (8.1-12.5) Prothromb Time International Ratio 1.17ratio Sodium Level 137mEq/L (134-144) 138mEq/L (134-144) Potassium Level 5.4mEq/L (3.5-5.2) 3.6mEq/L (3.5-5.2) Chloride Level 90mEq/L (97-108) 98mEq/L (97-108) Carbon Dioxide Level 28mmol/L (18-29) 29mmol/L (18-29) Blood Urea Nitrogen 34mg/dL (8-27) 29mg/dL (8-27) Creatinine 0.93mg/dL (0.76-1.27) 0.46mg/dL (0.76-1.27) Estimat Glomerular Filtration Rate 86mL/min (>59) 193mL/min (>59) Glucose Level 166mg/dL (60-99) 146mg/dL (60-99) Lactic Acid Level 6.9mmol/L (0.4-2.0) 1.7mmol/L (0.4-2.0) 2.0mmol/L (0.4-2.0) Calcium Level 8.1mg/dL (8.5-10.1) 7.3mg/dL (8.5-10.1) Magnesium Level 2.2mg/dL (1.6-2.6) Total Bilirubin 0.6mg/dL (0.0-1.2) 0.7mg/dL (0.0-1.2) Aspartate Amino Transf (AST/SGOT) 29U/L (0-50) 32U/L (0-50) Alanine Aminotransferase (ALT/SGPT) 12U/L (0-44) 13U/L (0-44) Alkaline Phosphatase 89U/L (25-160) 69U/L (25-160) Lactate Dehydrogenase 427U/L (100-190) Total Creatine Kinase 52U/L (21-232) Troponin T 0.010ug/L (0.0-0.011) Pro-B-Type Natriuretic Peptide 3608pg/mL (0-376) Total Protein 6.0g/dL (6.4-8.4) 4.9g/dL (6.4-8.4) Albumin 2.7g/dL (3.4-5.0) 2.2g/dL (3.4-5.0) Prealbumin 5mg/dL (20-40) Triglycerides Level 93mg/dL (0-149) Procalcitonin 0.24ng/mL (0.00-0.08) Thyroid Stimulating Hormone (TSH) 3.740uIU/mL (0.450-4.500) Urine Color Dark yellow (YELLOW) Urine Appearance Cloudy (CLEAR,HAZY) Urine pH 6.0 (5.0-8.0) Urine Specific [place] 1.025 (1.003-1.035) Urine Protein 100mg/dL (NEG,TRACE) Urine Glucose (UA) Negativemg/dL (NEGATIVE) Urine Ketones Negativemg/dL (NEGATIVE) Urine Occult Blood Large (NEGATIVE) Urine Nitrite Negative (NEGATIVE) Urine Bilirubin Negative (NEGATIVE) Urine Urobilinogen 4.0mg/dL (NORMAL) Urine Leukocyte Esterase Negative (NEGATIVE) Urine RBC 11-50/hpf (0-2) Urine WBC 0-5/hpf (0-5) Urine Epithelial Cells Occasional/hpf (NONE-MOD) Urine Crystals Oxalic acid crystals (NONE Urine Bacteria Few/hpf (NONE-FEW) Urine Hyaline Casts 5/20/lpf (NONE) Urine Granular Casts None seen (NONE SEEN) Urine Waxy Casts None seen (NONE SEEN) Urine Red Blood Cell Casts None seen (NONE SEEN) Urine White Blood Cell Casts None seen (NONE SEEN) Urine Mucus Present (None Seen) Urine Trichomonas None seen (NONE SEEN) Urine Yeast None (NONE SEEN) Urinalysis Comment None Urine Culture Reflexed Not indicated Test 04/17/17 15:00 04/17/17 15:28 White Blood Count 11.7th/mm3 (3.8-10.1) Red Blood Count 3.78mil/mm3 (4.40-5.80) Hemoglobin 10.7g/dL (13.8-17.2) Hematocrit 33.2% (41.0-50.0) Mean Corpuscular Volume 87.8fL (81-100) Mean Corpuscular Hemoglobin 28.3pg (27.0-35.0) Mean Corpuscular Hemoglobin Concent 32.2% (32.0-37.0) Red Cell Distribution Width 15.2% (12.3-15.4) Platelet Count 306bil/L (150-400) Neutrophils (%) (Auto) 70% (40-74) Lymphocytes (%) (Auto) 4% (14-46) Monocytes (%) (Auto) 4% (4-12) Eosinophils (%) (Auto) 0% (0-5) Basophils (%) (Auto) 0% (0-3) Band Neutrophils % 22% (1-5) Lactic Acid Level 2.1mmol/L (0.4-2.0) Body Fluid Source Pleural fluid Body Fluid Color Red (Clear) Body Fluid Appearance Cloudy Body Fluid WBC 83375/mm3 Body Fluid RBC 596556/mm3 Body Fluid Polynuclear WBCs 75% Body Fluid Lymphocytes 12% Body Fluid Monocytes 14% Body Fluid Eosinophils 0% Body Fluid Basophils 0% Result Diagram: 04/17/17 1500 04/17/17 1220 X-Rays, CTs and MRIs PROCEDURE: CT CHEST WITHOUT CONTRAST ([id number]) IMPRESSION: 1. Small anterolateral and posterior medial loculated hydropneumothoraces with associated pleural calcifications. Moderate pneumomediastinum. 2. Dense consolidation involving the majority of the left lung with cavitation most consistent with severe pneumonia. There is lesser, moderate consolidation in the dependent right lower lobe which may represent further infection or aspiration. 3. Emphysema with biapical scarring and possible right apical cavitary lesion containing solid component or debris. 4. Small mass at the right lateral aspect of the mid esophagus may represent lymphadenopathy. A CT with contrast will be needed for more definitive evaluation. 5. Support lines in the expected locations. PROCEDURE: X-RAY CHEST ONE VIEW, PORTABLE ([id number]) IMPRESSION: 1. Tubes and lines as described. 2. No pneumothorax. 3. Extensive consolidation of the lungs (left greater than right) is similar to the prior study. 12-lead ECG Sinus tachycardia rate of 107 right bundle branch block pattern Additional Diagnostics: DateTimeAnalyzed 07:53:00 -_ pH ____7.128 - 7.320 7.420 pCO2 ___83.9__ -mmHg 41.0 51.0 pO2 ___40.3__ -mmHg 26.0 49.0 HCO3- ___26.6__ -mmol/L 22.0 26.0 ABE ___-5.5__ -mmol/L -2.0 2.0 tHb ___15.7__ -g/dL 12.0 18.0 O2Hb ___55.2__ -% COHb ____3.7__ -% 1.5 MetHb ____0.8__ -% 0.4 1.5 sO2 ___57.8__ -% 40.0 70.0 FIO2 __100.0__ -% SIMV __460.0__ -Rate PEEP ____5.0__ -cmH2O Set_RR ___20.0__ -b/min Assessment & Plan Septic shock, POA Patient presented to the floor intubated and sedated. He was noted to have persistent hypotension despite 3L of NS in the ED. His Chest xray was grossly abnormal and is suspicious but not limited to empyema, chronic aspiration multilobar pneumonia, fungal/atypical pneumonia, and tuberculosis. Lactate was noted to be 6.9 on admission so we will continue to check lactic acid levels every 2 hours Placed on sepsis protocol Antibiotic regimen per infectious disease Acute hypoxic hypercapnic respiratory failure, POA Likely due to his septic shock and impressive pulmonary infection He is continuing to require high peak pressures and his CT showed multiple bullae, loculations, and diffuse consolidation. He may need a tube thoracostomy to drain his empyema to improve ventilation. Appreciate pulmonary/and intensive care consultation Daily ABGs and CXR while on ventilator Continue sedation with Propofol and Fentanyl Multilobar pneumonia, POA Replace in reverse isolation precaution for potential of tuberculosis Will defer abx selection to ID team, but fungal coverage may be necessary too We will check respiratory PCR, sputum studies and further recommendations per infectious disease Pneumothorax and Pneumomediastinum, POA As noted on chest CT, L>R. Patient also has pleural plaques suspicious for asbestosis and emphysema, consistent with his smoking history. Patient may benefit from the Chest tube and will defer to pulmonary expect he is Possible GI Bleed, POA GI bleed vs hemoptysis Patient was noted to have pink tinged sputum on admission. There is concern for GI bleed with his anemia. Family reports that patient does not consume much alcohol, but does take Aspirin frequently and Cris seltzer. GI consultation has been obtained Cachexia with severe protein calorie malnutrition and anemia, POA Patient is frail and cachetic and per family, has lost 1/3 of his weight of the last year. Dietary consult and early tube feeding planned when patient is more stable. Tobacco abuse, POA Will encourage cessation. Lines: Right IJ line placed by the ED on 04/17, Coello catheter in place since 04/17 Diet: Nothing by mouth while intubated Pain Evaluation: Other (sedated) VTE Prophylaxis: Sub-Q Enoxaparin VTE Mechanical Devices: Intermittant Pneumatic CD Resuscitation Status: CPR: Attempt Resuscitation Time spent 60 minutes Roxy Lowery MD Apr 17, 2017 16:26 Resuscitation Status: CPR: Attempt Resuscitation Roxy Lowery MD Apr 17, 2017 16:26
[2017-04-17 16:52] LABS: TOTAL PROTEIN,PLEURAL FLUID 1.9 g/dL
[2017-04-17] MEDS: Pantoprazole 4 mg/mL 10 mL Inj IVPUSH SCH (17:08)
--- NOTE | 2017-04-17 17:24 | NUR ---
Inpatient Wound Nurse Patient seen for Prevention Injury Prevention protocol. Nonblanchable tissue noted to bilateral heels. Primary CCU RN will apply foam boots as soon as available. [facility]ON RN will see patient Thursday for further assessment and care.
--- NOTE | 2017-04-17 18:24 | PCM.HPMED ---
Subjective Date of Service Apr 17, 2017 Primary Provider: Admitting Physician: Roxy Lowery MD Primary Care Physician: Nopcp Attending Physician: Roxy Lowery MD Chief Complaint: Severe respiratory distress History of Present Illness: Mr. Fabian Purdy is a 67-year-old male who has not seen a doctor for several decades. He was having progressive respiratory distress and was found down by family. Aware that patient had any fevers or chills. He smokes 2-3 packs per day. He is not on any medications. He has been retired for 5 years or so and family reports since then he "sits in the rocking chair and has rocked himself into the grave." And that he "sits on the couch and smokes and drinks all day long." GI has been consulted to investigate via EGD for possible GI bleed. Review of Systems: All other review of systems reviewed with and are negative except for as in history of present illness. Allergies Coded Allergies: No Known Allergies (Unverified , 04/17/17) Home Medications Aspirin PMH None Surgical History None Family History None reported Social History Hx Alcohol Use: Yes Hx Substance Use: No (HEAVY COFFEE DRINKER) Hx Tobacco Use: Yes Smoking Status: Current Every Day Smoker (2-3 packs per day) Living Arrangement: with Family Exam Vital Signs Vital Sign - Last Date Time Temp Pulse Resp B/P Pulse Ox O2 Delivery O2 Flow Rate FiO2 04/17/17 16:52 82 108/75 95 60 04/17/17 15:50 Ventilator 04/17/17 15:50 36.4 22 Exam General: Very cachectic elderly gentleman, intubated, HEENT: Normocephalic, atraumatic. External ears without defect. Pupils equal, round, and reactive to light and accommodation. Anicteric sclerae, moist conjunctivae, and no lid lag. Oropharynx free of erythema and cobble stoning with moist mucosa. Neck: Supple with full range of motion. No jugular venous distension. No bruits. No lymphadenopathy or thyromegaly. Cardiovascular: Regular rate and rhythm with no murmurs, rubs, or gallops appreciated Pulmonary: Diffuse crackles and wheezes, or rhonchi. Abdomen: Bowel tones present. Soft, nontender, nondistended. No hepatosplenomegaly or masses appreciated. Extremities: No clubbing, cyanosis, edema, or lymphadenopathy appreciated. Skin: Normal temperature, turgor, and texture; no rash, ulcers, or subcutaneous nodules appreciated. Neurological: Cranial nerves grossly intact. Normal muscle strength, tone, and bulk. Reflexes, coordination, and sensory function within normal limits. No known gait impairment. Psychiatric: Intubated, moves limbs spontaneously to painful stimuli Lab and Diagnostics Result Diagram: 04/17/17 1500 04/17/17 1220 X-Rays, CTs and MRIs PROCEDURE: CT CHEST WITHOUT CONTRAST ([id number]) IMPRESSION: 1. Small anterolateral and posterior medial loculated hydropneumothoraces with associated pleural calcifications. Moderate pneumomediastinum. 2. Dense consolidation involving the majority of the left lung with cavitation most consistent with severe pneumonia. There is lesser, moderate consolidation in the dependent right lower lobe which may represent further infection or aspiration. 3. Emphysema with biapical scarring and possible right apical cavitary lesion containing solid component or debris. 4. Small mass at the right lateral aspect of the mid esophagus may represent lymphadenopathy. A CT with contrast will be needed for more definitive evaluation. 5. Support lines in the expected locations. PROCEDURE: X-RAY CHEST ONE VIEW, PORTABLE ([id number]) IMPRESSION: 1. Tubes and lines as described. 2. No pneumothorax. 3. Extensive consolidation of the lungs (left greater than right) is similar to the prior study. 12-lead ECG Sinus tachycardia rate of 107 right bundle branch block pattern Additional Diagnostics: DateTimeAnalyzed 07:53:00 -_ pH ____7.128 - 7.320 7.420 pCO2 ___83.9__ -mmHg 41.0 51.0 pO2 ___40.3__ -mmHg 26.0 49.0 HCO3- ___26.6__ -mmol/L 22.0 26.0 ABE ___-5.5__ -mmol/L -2.0 2.0 tHb ___15.7__ -g/dL 12.0 18.0 O2Hb ___55.2__ -% COHb ____3.7__ -% 1.5 MetHb ____0.8__ -% 0.4 1.5 sO2 ___57.8__ -% 40.0 70.0 FIO2 __100.0__ -% SIMV __460.0__ -Rate PEEP ____5.0__ -cmH2O Set_RR ___20.0__ -b/min Assessment & Plan Possible GI Bleed - Patient was noted to have pink tinged sputum on admission, dark blood per ng tube, and melanotic stools at home. - Aspirin frequently and Cris seltzer. - Follow H&H and transfuse to keep hgb >7.0 - PPI ggt. - Schedule EGD for today. Septic shock Acute hypoxic hypercapnic respiratory failure Multilobar pneumonia Pneumothorax and Pneumomediastinum Cachexia with severe protein calorie malnutrition and anemia Tobacco abuse Pain Evaluation: Other (sedated) VTE Prophylaxis: Sub-Q Enoxaparin VTE Mechanical Devices: Intermittant Pneumatic CD Resuscitation Status: CPR: Attempt Resuscitation Attending Statement patient seen and examined agree with resident physician note above spoke with patients Antonella she was agreeable for me to proceed with EGD, risk, benefits and complications explained. SIMI GR DO Apr 17, 2017 18:24 Kenney Trejo MD Apr 18, 2017 16:13 - Schedule EGD for today. Septic shock Acute hypoxic hypercapnic respiratory failure Multilobar pneumonia Pneumothorax and Pneumomediastinum Cachexia with severe protein calorie malnutrition and anemia Tobacco abuse Pain Evaluation: Other (sedated) VTE Prophylaxis: Sub-Q Enoxaparin VTE Mechanical Devices: Intermittant Pneumatic CD Resuscitation Status: CPR: Attempt Resuscitation SIMI GR DO Apr 17, 2017 18:24
[2017-04-17] MEDS ORDERED: KCl 40 mEq/D5W 500 mL 40 MEQ in IV Premix 500 EACH IV ONE (18:45)
[2017-04-17] MEDS ORDERED: 0.9% Sodium Chloride 500 ML IV PRN (18:45)
--- NOTE | 2017-04-17 18:46 | ENDO ---
[address] [address] ENDOSCOPY PROCEDURE PATIENT: GENET DIAZ : 1950 MR#: [id number] ADMIT: 04/17/2017 JOB ID: [id number] DATE OF SERVICE: 04/17/2017 PROCEDURE: Esophagogastroduodenoscopy. INDICATION: Hematemesis and coffee-grounds from NG tube. SEDATION: The patient was already intubated and sedated in the critical-care unit. DETAILS OF PROCEDURE: A standard EGD scope was introduced into the site of the bite block that the patient had in place for his ET tube. Without difficulty, we were able to advance the endoscope into the second portion of the duodenum. FINDINGS: 1. Normal-appearing duodenal bulb, first and second portion. Bile stained mucosa was noted throughout the examined portions of duodenum. 2. Normal-appearing pylorus, antrum and gastric body. 3. Retroflexed views in the gastric body revealed normal-appearing cardia and fundus. 4. Bile-stained mucosa was noted throughout the stomach. 5. Normal-appearing GE junction with a regular Z-line. 6. Normal-appearing esophagus. IMPRESSION: 1. No findings to explain patient's hematemesis or coffee-grounds in the NG tube. Continue proton pump inhibitor daily for stress prophylaxis. 2. Consider pulmonary etiology for possible hemoptysis. COMPLICATIONS: None. ESTIMATED BLOOD LOSS: Zero.
--- NOTE | 2017-04-17 18:51 | PCM.PROC ---
Procedure Note Date of Service: Apr 17, 2017 Pre Procedure Diagnosis: Septic Shock Post Procedure Diagnosis: Same Procedure: Right Radial Arterial Line Placement Provider and Foreclosure Specialist: Attending: Ajit Anne MD Resident: Christofer Bone DO Indication for Procedure: Septic Shock, Hemodynamic monitoring Procedural Analgesia: Patient on IV Fentanyl and IV Propofol gtt for sedation Procedure Details: Consent was obtained with Son A time-out was completed verifying correct patient, procedure, site, positioning , and special equipment if applicable. The patients right wrist was prepped and draped in sterile fashion with Chlorhexidine Swabs. An arterial line was introduced into the radial artery under Ultrasound guidance. The catheter was threaded over the guide wire and the needle was removed with appropriate pulsatile blood return. The catheter was then securely place to the skin and a sterile dressing applied. Perfusion to the extremity distal to the point of catheter insertion was checked and found to be adequate. Attending Physician was present for the entire procedure. Estimated Blood Loss: 3 ml The patient tolerated the procedure well and there were no complications. Merlin Jackson DO Apr 17, 2017 18:51
--- NOTE | 2017-04-17 19:02 | NUR ---
Admit/shift note Patient arrived in CCU at 1015. Patient was ventilated with 100% FIO2. Poor extremity perfusion and pleth was not obtainable. Forehead oximetry was placed with oxygen saturation 95-100%- please see RT documentation for ventilator changes. Patient was at the time on 0.02mcg/kg/min levophed with BP 76/58- Levophed was increased to 0.2mcg/kg/min BP improved lease see CCU flow sheet for vitals and details- continued to titrating levophed throughout the shift to maintain adequate BP. Right a- line placed this evening for closer BP monitoring. Left chest tube was placed by MD- chest tube to 40cm suction adjusted by MD and with visible large air leak- MD aware. Moderate amount of crepitus collected on left side and chest to the level of left shoulder- MD aware no new orders at this time. Abel scan at 10- consulted with wound therapy- protective dressing/boots were placed on feet and buttock. Patient was placed in room 2018 for respiratory isolation R/O TB per Estrada's recommendation.
--- NOTE | 2017-04-17 19:24 | ABG ---
DateTimeAnalyzed 19:21:25 -_ pH ____7.255 - 7.350 7.450 pCO2 ___60.5__ -mmHg 35.0 45.0 pO2 ___71.4__ -mmHg 80.0 100 HCO3- ___26.8__ -mmol/L 22.0 26.0 ABE ___-0.4__ -mmol/L -2.0 2.0 tHb ___10.6__ -g/dL 12.0 18.0 O2Hb ___90.3__ -% COHb ____2.0__ -% 1.5 MetHb ____0.0__ -% 0.4 1.5 sO2 ___91.8__ -% 95.0 AaDpO2 __289.6__ -mmHg FIO2 ___60.0__ -% Pressure_Support ___30.0__ -cmH2O PEEP ____5.0__ -cmH2O Set_RR 20 -b/min Drawn By TLA - Date/Time Notified____ 19:24:00 -_ Oxygen Device 1 VENTILATOR - Notified By TLA - Notified Whom ___Dr. Paz - K+ ____3.1__ -mmol/L 3.5 5.0 Good test N/A -
--- NOTE | 2017-04-17 20:14 | NUR ---
Low heart rate during EGD During EGD procedure patients heart rate decreased to 36-40 ranges with two attempts by MD to pass endoscope through the esophagus to the stomach. SBP also decreased to 60-70 ranges with MAP in 40s- patient was given atropine 1mg IV push, he received 500ml NS bolus over 30min, Levophed was increased to 0.3mcg/kg/min. heart rate increased to 100-110 and BP normalized shortly after atropine was given. MD was able to complete EGD at the time. NG tube placed in ED was removed by retail sales advisor during EGD procedure and was replaced by 16f OG tube after procedure was completed.
[2017-04-17] MEDS: 0.9% Sodium Chloride 1,000 ML IV SCH (21:00)
[2017-04-18] VITALS (15 sets, daily range): BP systolic 92–110; BP diastolic 47–68; PULSE 74–96; RESP 13–24; O2SAT 90–97
[2017-04-18] MEDS: 0.9% Sodium Chloride 1,000 ML IV SCH ×4 (00:51→21:25)
[2017-04-18] MEDS: Chlorhexidine 0.12% 15 mL Oral Solution MT SCH ×6 (00:51→20:16)
[2017-04-18] MEDS: Propofol Inj 1,000,000 MCG in IV Premix 1 EACH IV SCH ×2 (03:37→20:17)
--- NOTE | 2017-04-18 05:56 | ABG ---
DateTimeAnalyzed 05:51:40 -_ pH ____7.066 - 7.350 7.450 pCO2 ___98.9__ -mmHg 35.0 45.0 pO2 ___80.6__ -mmHg 80.0 100 HCO3- ___28.4__ -mmol/L 22.0 26.0 ABE ___-2.1__ -mmol/L -2.0 2.0 tHb ___11.5__ -g/dL 12.0 18.0 O2Hb ___91.3__ -% COHb ____1.8__ -% 1.5 MetHb ____0.0__ -% 0.4 1.5 sO2 ___93.0__ -% 95.0 AaDpO2 __312.6__ -mmHg FIO2 ___70.0__ -% PEEP ____5.0__ -cmH2O Vt __220.0__ -L Drawn By MD - Date/Time Notified____ 05:55:00 -_ Spontaneous_RR 18 -b/min Oxygen Device 1 VENTILATOR - Notified By MD - Notified Whom ___Dr. Sullenberger -____ K+ ____4.7__ -mmol/L 3.5 5.0 Good test N/A -
[2017-04-18 06:09] LABS: EOSINOPHILS % (AUTO) 0 % (0-5); Mean Corpuscular Volume 92.6 fL (81-100); Platelet Count 302 bil/L (150-400)
--- NOTE | 2017-04-18 06:30 | NUR ---
P: low BP I: norepinephrine E: Titrate norepinephrine from 0.28mcg to a current rate at 0.08mcg to keep SBP > 90 and MAP > 65. Tele SR. Marginal UOP. CVP 13-15. Generalize edema bordering on anasarca. Tilting side to side to protect skin. L CT at 40cm. Generalize crepitus > L. Increase fio2 from 60% to 70% to keep sats > 92%. PC-APRV setting. Breathes over vent rate. RASS -%. Titrate propofol from 20 mcg to off. Fentanyl from 50mcg to 10mcg. RASS -4/-5.
[2017-04-18 06:42] LABS: Magnesium 1.8 mg/dL (1.6-2.6)
[2017-04-18 07:23] LABS: NEUTROPHILS % (AUTO) 83 % (40-74)
[2017-04-18 07:24] LABS: BASOPHILS % (AUTO) 0 % (0-3); MONOCYTES % (AUTO) 8 % (4-12)
[2017-04-18] MEDS: Pantoprazole 4 mg/mL 10 mL Inj IVPUSH SCH (07:30)
--- NOTE | 2017-04-18 07:36 | ABG ---
DateTimeAnalyzed 07:33:06 -_ pH ____7.076 - 7.350 7.450 pCO2 ___90.9__ -mmHg 35.0 45.0 pO2 ___86.3__ -mmHg 80.0 100 HCO3- ___26.6__ -mmol/L 22.0 26.0 ABE ___-3.5__ -mmol/L -2.0 2.0 tHb ___11.3__ -g/dL 12.0 18.0 O2Hb ___93.3__ -% COHb ____1.8__ -% 1.5 MetHb ____0.0__ -% 0.4 1.5 sO2 ___94.9__ -% 95.0 AaDpO2 __315.4__ -mmHg FIO2 ___70.0__ -% Drawn By as - Oxygen Device 2 APRV - Date/Time Notified____ 07:35:00 -_ Spontaneous_RR 36 -b/min Oxygen Device 1 VENTILATOR - Notified By AMS - Notified Whom JAMES MASSEY, RN - K+ ____4.5__ -mmol/L 3.5 5.0 Good test N/A -
[2017-04-18] MEDS ORDERED: Albuterol-Ipratropium 3 mL Inhalation Solution ONE (08:00)
--- NOTE | 2017-04-18 08:23 | DRSVH ---
PROCEDURE: X-RAY CHEST ONE VIEW, PORTABLE ([id number]) INDICATIONS: shortness of breath, status-post chest tube placement TECHNIQUE: One view of the chest was acquired. COMPARISON: [facility], CR, XR CHEST 1VW (PORTABLE), 04/17/2017, 7:21. [facility], CT, CT CHEST WO CON, 04/17/2017, 10:23. [facility], CR, XR CHEST 1VW (PORTABLE), , 13:21. [facility], CR, XR CHEST 1VW (PORTABLE), 04/17/2017, 9:13. FINDINGS: Surgical changes and devices: Endotracheal tube appears in normal position, what appears to be a esop hagogastric tube extends inferiorly into the gastric lumen. A left lateral pleural drain has been pl aced, superimposed on the lower left chest. Extensive subcutaneous emphysema is seen bilaterally. R ight internal jugular region Central venous catheter extends into the area of the distal SVC. Lungs and pleura: No pleural effusions or pneumothorax. Lungs are abnormal with severe pneumonia pa ttern and superimposed subcutaneous emphysema increases complexity of the appearance of the lung pare nchyma bilaterally. Mediastinum: Mediastinal contours appear normal. Heart size is normal. Bones and chest wall: No suspicious bony lesions. Overlying soft tissues appear unremarkable. IMPRESSION: Lines and tubes as discussed, extensive subcutaneous emphysema has developed. Right pleu ral drain is noted, and bilateral severe pneumonia appears superimposed. Dictated by: Paul Amin M.D. on 04/18/2017 at 8:18 Approved by: Paul Amin M.D. on 04/18/2017 at 8:22
[2017-04-18] MEDS ORDERED: Pantoprazole 4 mg/mL 10 mL Inj IVPUSH SCH (08:30)
[2017-04-18] MEDS: Ertapenem Inj 1,000 MG in 0.9% Sodium Chloride 50 ML IV SCH (09:03)
[2017-04-18] MEDS: Norepineph 8,000 mCg/250 mL NS 8,000 MCG in IV Premix 1 EACH IV SCH ×2 (09:07→20:16)
[2017-04-18] MEDS: Albumin 25% 25 GM in IV Premix 1 EACH IV SCH ×3 (09:11→20:16)
[2017-04-18] MEDS ORDERED: .Epic Conversion Completed XX PRN (11:55)
[2017-04-18 12:07] LABS: Cryptococcal Ag Negative (Negative)
--- NOTE | 2017-04-18 12:43 | ABG ---
DateTimeAnalyzed 12:40:29 -_ pH ____7.183 - 7.350 7.450 pCO2 ___64.9__ -mmHg 35.0 45.0 pO2 179 -mmHg 80.0 100 HCO3- ___24.3__ -mmol/L 22.0 26.0 ABE ___-3.6__ -mmol/L -2.0 2.0 tHb ____9.2__ -g/dL 12.0 18.0 O2Hb ___98.9__ -% COHb ____1.7__ -% 1.5 MetHb ____0.0__ -% 0.4 1.5 sO2 __100.0__ -% 95.0 AaDpO2 __250.0__ -mmHg FIO2 ___70.0__ -% Pressure_Support ___30.0__ -cmH2O PEEP ____5.0__ -cmH2O Set_RR 24 -b/min Drawn By as - Date/Time Notified____ 12:43:00 -_ Spontaneous_RR 24 -b/min Oxygen Device 1 VENTILATOR - Notified By ams - Notified Whom dr mathew - K+ ____4.5__ -mmol/L 3.5 5.0 Good test N/A -
--- NOTE | 2017-04-18 13:12 | DRSVH ---
PROCEDURE: X-RAY CHEST ONE VIEW, PORTABLE ([id number]) INDICATIONS: line placement TECHNIQUE: One view of the chest was acquired. COMPARISON: None. FINDINGS: Surgical changes and devices: Right internal jugular central line placed, tip appears superimposed i n the expected general region of the distal SVC. Endotracheal tube tip extends inferior to the media l clavicular heads, but approximately 3.3 cm above the angela. Left pleural drain in normal position . Lungs and pleura: Lungs are worsening in appearance with increased radiodensity bilaterally, perhaps reflecting ARDS. Prominent bilateral subcutaneous emphysema again seen. Mediastinum: Mediastinal contours appear largely obscured by the increased radiodensity of the adjac ent lung parenchyma. Heart size is normal. Bones and chest wall: No suspicious bony lesions. Overlying soft tissues appear unremarkable. IMPRESSION: Central line placed in normal position, morphologically. Worsening alveolar airspace di sease bilaterally perhaps reflecting ARDS. Lines and tubes in normal position. Dictated by: Paul Amin M.D. on 04/18/2017 at 13:09 Approved by: Paul Amin M.D. on 04/18/2017 at 13:11
--- NOTE | 2017-04-18 15:00 | ABG ---
DateTimeAnalyzed 14:55:20 -_ pH ____7.249 - 7.350 7.450 pCO2 ___54.8__ -mmHg 35.0 45.0 pO2 ___67.1__ -mmHg 80.0 100 HCO3- ___24.0__ -mmol/L 22.0 26.0 ABE ___-3.0__ -mmol/L -2.0 2.0 tHb ____9.1__ -g/dL 12.0 18.0 O2Hb ___92.8__ -% COHb ____1.8__ -% 1.5 MetHb ____0.0__ -% 0.4 1.5 sO2 ___94.3__ -% 95.0 AaDpO2 __228.7__ -mmHg FIO2 ___50.0__ -% Pressure_Support ___30.0__ -cmH2O PEEP ____5.0__ -cmH2O Set_RR 24 -b/min Drawn By as - Date/Time Notified____ 15:00:00 -_ Spontaneous_RR 24 -b/min Oxygen Device 1 VENTILATOR - Notified By ams - Notified Whom dr Dayana - K+ ____4.1__ -mmol/L 3.5 5.0 Good test N/A -
--- NOTE | 2017-04-18 15:06 | PCM.PROC ---
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 Balloon occlusion of responsible bronchus with [place]- Екатерина catheter. Blood patch instillation through PA catheter tip to help collapse suspicious left lung segment. Indication for Procedure: Very large chest tube air leak Procedural Analgesia: Propofol and fentanyl while on ventilator. Procedure Details: Patient was deeply sedated. Timeout was performed. Consent was obtained. Risk of hemorrhage loss of airway pneumothorax explained to the patient's agreed to proceed with the procedure as planned. ASA 5. In the beginning of the procedure the patient required Levophed at 10 mcg per minute. Patient was supine. Patient was briefly disconnected from the ventilator. His 7.0 endotracheal tube was removed and the 8.0 endotracheal tube was placed using a 4 mariee blade with slight difficulty. Total time of intubation 20 seconds. Oxygen saturation did not decrease below 90% during the procedure. A bronchoscopic adapter was applied to the 8. 0 endotracheal tube. I personally inserted the bronchoscope through the adapter into the endotracheal tube. Lungs are briefly inspected and revealed some mucus mainly on the left lower lobe left upper lobe segments. The bronchoscope was then advanced into the bronchus intermedius. The endotracheal tube was then placed distally into the right mainstem just above right upper lobe bronchus. The ventilator pressure was decreased to 20 with tidal volumes around 200 mL. Saturation remained in the high 90s. Blood pressure did not drop significantly. The endotracheal tube was then withdrawn back to 3 cm above the angela cuff inflated. The right upper lobe right lower lobe right middle lobe were inspected and appeared to be normal after suctioning clear mucus. Left upper lobe and left lower lobe had bloody mucus in them. No clear picture of the left lower lobe bronchus was obtained to safely exclude endobronchial lesion. The bronchoscope was then removed. A 6 mm [place]-Екатерина catheter was then inserted through the bronchoscopic adapter down to the angela. The bronchoscope was then placed through the bronchoscope adapter along side the [place]-Екатерина catheter (not in the bronchoscopic port) and used to help manipulate the [place]-Екатерина catheter into the left mainstem bronchus up into the left upper lobe bronchus. The [place]-Екатерина was advanced into the left upper lobe bronchus just distal to the lingular bronchus and the balloon was inflated. Immediately the very large air leak in the left chest tube stopped. Ventilator pressures were increased to 40 for adequate minute ventilation and no leak was appreciated in the chest tube. Ventilator pressure was decreased back to 30. 20 mL of the patient's blood was then instilled through the distal port of the [place]-Екатерина catheter into the left upper lobe distal to the lingular takeoff. 5 mL of epinephrine with normal saline was then instilled behind the blood to help with coagulation. The bronchoscope was held in position with the tip touching the balloon for approximately 15 minutes. The chest tube continued to show no evidence of any air leak. The bronchoscope was gently removed revealing some clotted blood in the left mainstem bronchus. Care was taken not to dislodge the [place]-Екатерина catheter from the left upper lobe bronchus. 45 minutes later a chest x-ray was taken which confirmed placement of [place]-Екат[place]ина catheter in the left upper lobe bronchus with the balloon inflated. At this time no air leak has returned in the chest to tube atrium while on -40 of suction after more than 2 hours since placement. MAP 65 and oxygen saturation 100% with plateau pressures of 20 at end of procedure. Total time procedure 45 minutes. Post Procedure Plan: Continue [place]-Екатерина catheter placement as long as tolerated in the left upper lobe distal take off with the balloon inflated. Keep sedation as sedated as possible and minimize movement to avoid dislodgment of the catheter balloon occluding the left upper lobe takeoff. Continue to occlude the left upper lobe bronchus as tolerated to help oppose lung parenchyma and allow adequate time to heal apical/posterior and anterior segments. Minimize ventilatory pressures to keep pH around 7.2. PaO2 goal 58. Ajit Anne MD Apr 18, 2017 15:06
[2017-04-18] MEDS ORDERED: Heparin 5,000 Unit/mL Inj SUBQ SCH (16:30)
--- NOTE | 2017-04-18 16:58 | DRSVH ---
PROCEDURE: X-RAY CHEST ONE VIEW, PORTABLE ([id number]) INDICATIONS: line placement TECHNIQUE: One view of the chest was acquired. COMPARISON: [facility], CR, XR CHEST 1VW (PORTABLE), 04/18/2017, 12:39. [facility], CR, XR CHEST 1VW (PORTABLE), 04/17/2017, 13:21. FINDINGS: Surgical changes and devices: Endotracheal tube appears in normal position, esophago-gastric tube ex tends with side port below the EG junction. What appears to be a right internal jugular central line overlies the right superior mediastinum and its tip cannot be seen clearly extending below the area just below the azygous arch level. A new central line is not seen but multiple electrode leads and s ubcutaneous emphysema overlies the chest rendering accurate assessment of line positioning very limit ed. A left pleural drain over the lower left chest stable position.. Lungs and pleura: Lungs are unchanged. What likely is severe COPD with pulmonary hyperexpansion is present and bilateral pneumonia also likely is again suspected Overlying extensive subcutaneous emphy sema again noted. Mediastinum: Mediastinal contours appear normal. Heart size is normal. Bones and chest wall: No suspicious bony lesions. Overlying soft tissues appear abnormal with exten sive subcutaneous emphysema. IMPRESSION: As above there is extensive abnormality over the chest including subcutaneous emphysema, multiple external and internal devices and tubes, and the exact positioning of the central line pres ent cannot be established by this study. A definite new central line is not found. CT scanning may be warranted if there is a concern for presence of a central line not in normal position such as eith er within a arterial structure or in the mediastinal soft tissues. Dictated by: Paul Aimn M.D. on 04/18/2017 at 16:52 Approved by: Paul Amin M.D. on 04/18/2017 at 16:56
--- NOTE | 2017-04-18 17:50 | PCM.PNMED ---
Subjective Date of Service Apr 18, 2017 Subjective Chief complaint: Shortness of breath Ventilator day #2. [place]-Екатерина catheter placed through endobronchial adaptor and guided with bronchoscope to the left upper lobe bronchus where it was inflated and used to occlude the apical/posterior and anterior segments of the AMY. Blood patch 20 ml delivered via distal [place]-Екатерина catheter into AMY while balloon inflated. Bronchopleural fistula resolved completely for over 2.5 hours. Air leak returned and CXR confirmed similar placement of catheter in the left upper lobe. An additional 20 ml blood was delivered via distal Pe[place]-Екатерина catheter with slowing of the air leak. Minute ventilation around 7.5 L/min on PC 30/5 RR 24 with Fio2 50%. Exam Vital Signs Vital Sign - Last Date Time Temp Pulse Resp B/P Pulse Ox O2 Delivery O2 Flow Rate FiO2 04/18/17 16:25 78 92/55 97 50 04/18/17 12:35 36.7 13 Mechanical Ventilator Intake and Output 04/17/17 04/17/17 04/18/17 Cumulative From/Thru 15:00 23:00 07:00 04/17/17 07:21 - 04/18/17 06:23 Intake Total 3000 ml 2994 ml 2501 ml 8495 ml Output Total 630 ml 385 ml 1015 ml Balance 3000 ml 2364 ml 2116 ml 7480 ml Intake IV Total 3000 ml 2994 ml 2501 ml 8495 ml Output Urine Total 400 ml 275 ml 675 ml Gastric Drainage Total 150 ml 50 ml 200 ml Chest Tube Drainage Total 80 ml 60 ml 140 ml # Bowel Movements 0 0 Exam Gen.: Frail cachectic elderly male who is intubated and sedated, interacts with family when sedation decrease HEENT: Atraumatic, normocephalic, sclera nonicteric, Trach tube in place, poor dentition. PERRL. Pupil is 2 mm bilaterally. Neck: Supple, trachea midline, no JVD noted, crepitus Chest: Crepitus. Left chest tube tidaling with air leak on -40 cmH2O CV: RRR, soft systolic murmur, distant heart sounds. S1 S2. No P2. Respiratory: Large barrel chested, diffuse bilateral rhonchi and expiratory wheezing with diffuse scattered crackles, decreased lung sounds on the left Abdomen: Soft, nondistended, decreased bowel sounds, no rashes noted MSK: Extremities are thin and frail, no swollen or tender joints. Neuro: Sedated patient. Localizes to pain. Interacts with family when sedation decrease. Skin: Cool. Diffusely dry and flaking, early skin breakdown noted on bilateral heel pad and sacral. No rash. Capillary refill 2 seconds. No skin tenting. SQ air throughout. IVs and Medications Medications Reviewed: Medications were reviewed in detail Lab and Diagnostics Result Diagram: 04/18/1754404/18/17544 Microbiology Alpha strep Rhinovirus X-Rays, CTs and MRIs PROCEDURE: CT CHEST WITHOUT CONTRAST ([id number]) IMPRESSION: 1. Small anterolateral and posterior medial loculated hydropneumothoraces with associated pleural calcifications. Moderate pneumomediastinum. 2. Dense consolidation involving the majority of the left lung with cavitation most consistent with severe pneumonia. There is lesser, moderate consolidation in the dependent right lower lobe which may represent further infection or aspiration. 3. Emphysema with biapical scarring and possible right apical cavitary lesion containing solid component or debris. 4. Small mass at the right lateral aspect of the mid esophagus may represent lymphadenopathy. A CT with contrast will be needed for more definitive evaluation. 5. Support lines in the expected locations. PROCEDURE: X-RAY CHEST ONE VIEW, PORTABLE ([id number]) IMPRESSION: 1. Tubes and lines as described. 2. No pneumothorax. 3. Extensive consolidation of the lungs (left greater than right) is similar to the prior study. 12-lead ECG Sinus tachycardia rate of 107 right bundle branch block pattern Additional Diagnostics DateTimeAnalyzed 07:53:00 -_ pH ____7.128 - 7.320 7.420 pCO2 ___83.9__ -mmHg 41.0 51.0 pO2 ___40.3__ -mmHg 26.0 49.0 HCO3- ___26.6__ -mmol/L 22.0 26.0 ABE ___-5.5__ -mmol/L -2.0 2.0 tHb ___15.7__ -g/dL 12.0 18.0 O2Hb ___55.2__ -% COHb ____3.7__ -% 1.5 MetHb ____0.8__ -% 0.4 1.5 sO2 ___57.8__ -% 40.0 70.0 FIO2 __100.0__ -% SIMV __460.0__ -Rate PEEP ____5.0__ -cmH2O Set_RR ___20.0__ -b/min Assessment & Plan X-Rays, CTs and MRIs PROCEDURE: CT CHEST WITHOUT CONTRAST ([id number]) IMPRESSION: 1. Small anterolateral and posterior medial loculated hydropneumothoraces with associated pleural calcifications. Moderate pneumomediastinum. 2. Dense consolidation involving the majority of the left lung with cavitation most consistent with severe pneumonia. There is lesser, moderate consolidation in the dependent right lower lobe which may represent further infection or aspiration. 3. Emphysema with biapical scarring and possible right apical cavitary lesion containing solid component or debris. 4. Small mass at the right lateral aspect of the mid esophagus may represent lymphadenopathy. A CT with contrast will be needed for more definitive evaluation. 5. Support lines in the expected locations. CXR personally reviewed: Peoria-екатерина catheter seen traversing the left mainstem bronchus into the left upper lobe bronchus with balloon infiltrated similar to prior film. Chest remains in good position. Diffuse SQ air. Assessment & Plan Acute Left Bronchopleural fistula POA I exchanged his 7.0 endotracheal tube for an 8.0 endotracheal using a 4 mariee blade with slight difficulty. Total time of intubation 20 seconds. Oxygen saturation did not decrease below 90% during the procedure. A bronchoscopic adapter was applied to the 8. 0 endotracheal tube. I personally inserted the bronchoscope through the adapter into the endotracheal tube. Lungs were briefly inspected and revealed some mucus mainly on the left lower lobe left upper lobe segments. The bronchoscope was then advanced into the bronchus intermedius. The endotracheal tube was then placed distally into the right mainstem just above right upper lobe bronchus. The ventilator pressure was decreased to 20 with tidal volumes around 200 mL. Saturation remained in the high 90s. Blood pressure did not drop significantly. The endotracheal tube was then withdrawn back to 3 cm above the angela cuff inflated. The right upper lobe right lower lobe right middle lobe were inspected and appeared to be normal after suctioning clear mucus. Left upper lobe and left lower lobe had bloody mucus in them. No clear picture of the left lower lobe bronchus was obtained to safely exclude endobronchial lesion. The bronchoscope was then removed. A 6 mm Pe[place]-Екатерина catheter was then inserted through the bronchoscopic adapter down to the angela. The bronchoscope was then placed through the bronchoscope adapter along side the Pe[place]-Екатерина catheter (not in the bronchoscopic port) and used to help manipulate the Pe[place]-Екатерина catheter into the left mainstem bronchus up into the left upper lobe bronchus. The Pe[place]-Екатерина was advanced into the left upper lobe bronchus just distal to the lingular bronchus and the balloon was inflated. Immediately the very large air leak in the left chest tube stopped. Ventilator pressures were increased to 40 for adequate minute ventilation and no leak was appreciated in the chest tube. Ventilator pressure was decreased back to 30. 20 mL of the patient's blood was then instilled through the distal port of the Pe[place]-Екатерина catheter into the left upper lobe distal to the lingular takeoff. 5 mL of epinephrine with normal saline was then instilled behind the blood to help with coagulation. The bronchoscope was held in position with the tip touching the balloon for approximately 15 minutes. The chest tube continued to show no evidence of any air leak. The bronchoscope was gently removed revealing some clotted blood in the left mainstem bronchus. Care was taken not to dislodge the Pe[place]-Екатерина catheter from the left upper lobe bronchus. 45 minutes later a chest x-ray was taken which confirmed placement of Peoria-Екатерина catheter in the left upper lobe bronchus with the balloon inflated. Continue Peoria-Екатерина catheter placement as long as tolerated in the left upper lobe distal take off with the balloon inflated. Keep patient sedated to minimize movement which may lead to dislodgment of the catheter balloon occluding the left upper lobe takeoff. Continue to occlude the left upper lobe bronchus as tolerated to help oppose lung parenchyma and allow adequate time to heal apical/posterior and anterior segments. Consider placement of double-lumen endotracheal tube and single lung ventilation with two different ventilators to minimize pressure in left lung while allowing adequate gas exchange in the right lung without overdistension until bronchopleural fistula resolves. Other options are transfer to another facility for VV-ECMO. Patient has a large of family. I have personally updated the family many times throughout the day. They understand the patient is critically ill with a 70-80% chance of dying. All questions asked and answered. I spoke personally with other providers. Tomorrow another repairer art objects will take over care. Septic shock, POA Patient presented to the floor intubated and sedated. He was noted to have persistent hypotension despite 3L of NS in the ED. Imaging most consistent with multilobar pneumonia with empyema. Extensive left lung involvement, probable LLL alveolar hemorrhage from necrotic left lung with multiple loculated hydrothoraces. Lactate was noted to be 6.9 on admission which decreased upon repeat lab draw. ID recommended continuing ertapenem. Will need to move patient to a neg pressure room and rule out TB. Acid-fast bacilli pending. Blood cultures and sputum cultures pending. Blood pressure supports with Levophed at ideal body weight and titrated to MAP > 65. Acute hypoxic hypercapnic respiratory failure severe ARDS, POA Likely due to his septic shock and impressive pulmonary infection Plateau pressures improved after left thoracostomy tube placement Daily ABGs and CXR while on ventilator Continue sedation with Propofol and Fentanyl Minimize ventilatory pressures to keep pH around 7.2. PaO2 goal 58. Multilobar pneumonia, POA Likely community acquired or atypical since patient has not had any healthcare contact for years per family. Sputum has growth of alpha hemolytic strep. This very well could be strep pneumonia infection with explosive pleuritis. He benefit from antibiotics to help decrease toxin production. Rhinovirus also isolated. . Tension Left Pneumothorax with Pneumomediastinum, POA As noted on chest CT, L>R. Patient also has pleural plaques suspicious for asbestosis and emphysema, consistent with his smoking history. Patient improved after left thoracostomy tube placement. Large leak remains. Left Empyema POA Confirmed with left chest tube removal of white purulent thick fluid mixed with blood. >200 ml removed thus far. Care should be taken with tpa/dornase alpha if attempted given the thick adhesions I palpated when I entered the patient's chest as these are at risk of hemorrhaging. Hemoptysis POA secondary to necrotic pneumonia Endoscopy did not reveal any source of bleeding. Cannot exclude TB or nocardia. Awaiting AFB sputum results. Cachexia with severe protein calorie malnutrition and anemia, POA Patient is frail and cachetic and per family, has lost 1/3 of his weight of the last year. Prealbumin was 5 on admission. There is early skin breakdown noted. Dietary consult and early tube feeding planned when patient is more stable. Tobacco abuse, POA Will encourage cessation. Lines: Right IJ line placed by the ED on 04/17, Coello catheter in place since 04/17 Diet: Nothing by mouth while intubated Pain Evaluation: Other (sedated) VTE Prophylaxis: Sub-Q Heparin VTE Mechanical Devices: Intermittant Pneumatic CD Resuscitation Status: CPR: Attempt Resuscitation Time spent Total time spent in direct patient care thus far independent of all procedures 130 minutes. Ajit Anne MD Apr 18, 2017 17:50 Ajit Anne MD Apr 18, 2017 17:50 are briefly inspected and revealed some mucus mainly on the left lower lobe left upper lobe segments. The bronchoscope was then advanced into the bronchus intermedius. The endotracheal tube was then placed distally into the right mainstem just above right upper lobe bronchus. The ventilator pressure was decreased to 20 with tidal volumes around 200 mL. Saturation remained in the high 90s. Blood pressure did not drop significantly. The endotracheal tube was then withdrawn back to 3 cm above the angela cuff inflated. The right upper lobe right lower lobe right middle lobe were inspected and appeared to be normal after suctioning clear mucus. Left upper lobe and left lower lobe had bloody mucus in them. No clear picture of the left lower lobe bronchus was obtained to safely exclude endobronchial lesion. The bronchoscope was then removed. A 6 mm [place]-Екатерина catheter was then inserted through the bronchoscopic adapter down to the angela. The bronchoscope was then placed through the bronchoscope adapter along side the Peoria-Екатерина catheter (not in the bronchoscopic port) and used to help manipulate the Pe[place]-Екатерина catheter into the left mainstem bronchus up into the left upper lobe bronchus. The Pe[place]-Екатерина was advanced into the left upper lobe bronchus just distal to the lingular bronchus and the balloon was inflated. Immediately the very large air leak in the left chest tube stopped. Ventilator pressures were increased to 40 for adequate minute ventilation and no leak was appreciated in the chest tube. Ventilator pressure was decreased back to 30. 20 mL of the patient's blood was then instilled through the distal port of the Peoria-Екатерина catheter into the left upper lobe distal to the lingular takeoff. 5 mL of epinephrine with normal saline was then instilled behind the blood to help with coagulation. The bronchoscope was held in position with the tip touching the balloon for approximately 15 minutes. The chest tube continued to show no evidence of any air leak. The bronchoscope was gently removed revealing some clotted blood in the left mainstem bronchus. Care was taken not to dislodge the Peoria-Екатерина catheter from the left upper lobe bronchus. 45 minutes later a chest x-ray was taken which confirmed placement of Pe[place]-Екатерина catheter in the left upper lobe bronchus with the balloon inflated. At this time no air leak has returned in the chest to tube atrium while on -40 of suction after more than 2 hours since placement. MAP 65 and oxygen saturation 100% with plateau pressures of 20 at end of procedure. Total time procedure 45 minutes. Post Procedure Plan: Continue Peoria-Екатерина catheter placement as long as tolerated in the left upper lobe distal take off with the balloon inflated. Keep sedation as sedated as possible and minimize movement to avoid dislodgment of the catheter balloon occluding the left upper lobe takeoff. Continue to occlude the left upper lobe bronchus as tolerated to help oppose lung parenchyma and allow adequate time to heal apical/posterior and anterior segments. Minimize ventilatory pressures to keep pH around 7.2. PaO2 goal 58. VTE Prophylaxis: Sub-Q Enoxaparin VTE Mechanical Devices: Intermittant Pneumatic CD Resuscitation Status: CPR: Attempt Resuscitation Ajit Anne MD Apr 18, 2017 17:50
--- NOTE | 2017-04-18 18:20 | PCM.PNMED ---
Subjective Date of Service Apr 18, 2017 Subjective Patient continuing on ventilator. Multiple family members are at bedside. Exam Vital Signs Vital Sign - Last Date Time Temp Pulse Resp B/P Pulse Ox O2 Delivery O2 Flow Rate FiO2 04/18/17 16:25 78 92/55 97 50 04/18/17 12:35 36.7 13 Mechanical Ventilator Intake and Output 04/17/17 04/17/17 04/18/17 Cumulative From/Thru 15:00 23:00 07:00 04/17/17 07:21 - 04/18/17 06:23 Intake Total 3000 ml 2994 ml 2501 ml 8495 ml Output Total 630 ml 385 ml 1015 ml Balance 3000 ml 2364 ml 2116 ml 7480 ml Intake IV Total 3000 ml 2994 ml 2501 ml 8495 ml Output Urine Total 400 ml 275 ml 675 ml Gastric Drainage Total 150 ml 50 ml 200 ml Chest Tube Drainage Total 80 ml 60 ml 140 ml # Bowel Movements 0 0 Exam Constitutional: 67-year-old male currently on ventilator with significant swelling of his face secondary to subcutaneous emphysema Head: As noted above Chest reveals some scattered rhonchi and decreased breath sounds on his left lateral chest Cor: Regular rate and rhythm S1-S2 Abdomen: Soft nontender bowel sounds present Extremities: No pedal edema Neuro: Sedated does move all extremities to painful stimuli Lab and Diagnostics Result Diagram: 04/18/1745 04/18/1745 X-Rays, CTs and MRIs PROCEDURE: CT CHEST WITHOUT CONTRAST ([id number]) IMPRESSION: 1. Small anterolateral and posterior medial loculated hydropneumothoraces with associated pleural calcifications. Moderate pneumomediastinum. 2. Dense consolidation involving the majority of the left lung with cavitation most consistent with severe pneumonia. There is lesser, moderate consolidation in the dependent right lower lobe which may represent further infection or aspiration. 3. Emphysema with biapical scarring and possible right apical cavitary lesion containing solid component or debris. 4. Small mass at the right lateral aspect of the mid esophagus may represent lymphadenopathy. A CT with contrast will be needed for more definitive evaluation. 5. Support lines in the expected locations. PROCEDURE: X-RAY CHEST ONE VIEW, PORTABLE ([id number]) IMPRESSION: 1. Tubes and lines as described. 2. No pneumothorax. 3. Extensive consolidation of the lungs (left greater than right) is similar to the prior study. 12-lead ECG Sinus tachycardia rate of 107 right bundle branch block pattern Additional Diagnostics DateTimeAnalyzed 07:53:00 -_ pH ____7.128 - 7.320 7.420 pCO2 ___83.9__ -mmHg 41.0 51.0 pO2 ___40.3__ -mmHg 26.0 49.0 HCO3- ___26.6__ -mmol/L 22.0 26.0 ABE ___-5.5__ -mmol/L -2.0 2.0 tHb ___15.7__ -g/dL 12.0 18.0 O2Hb ___55.2__ -% COHb ____3.7__ -% 1.5 MetHb ____0.8__ -% 0.4 1.5 sO2 ___57.8__ -% 40.0 70.0 FIO2 __100.0__ -% SIMV __460.0__ -Rate PEEP ____5.0__ -cmH2O Set_RR ___20.0__ -b/min Assessment & Plan Septic shock, POA Patient presented to the floor intubated and sedated. He was noted to have persistent hypotension despite 3L of NS in the ED. His Chest xray was grossly abnormal and is suspicious but not limited to empyema, chronic aspiration multilobar pneumonia, fungal/atypical pneumonia, and tuberculosis. Lactate was noted to be 6.9 on admission so we will continue to check lactic acid levels every 2 hours which has continually improved since yesterday Placed on sepsis protocol Antibiotic regimen per infectious disease which includes IV ertapenem Acute hypoxic hypercapnic respiratory failure, POA Likely due to his septic shock and impressive pulmonary infection He is continuing to require high peak pressures and his CT showed multiple bullae, loculations, and diffuse consolidation. He may need a tube thoracostomy to drain his empyema to improve ventilation. Appreciate pulmonary/and intensive care consultation Daily ABGs and CXR while on ventilator Continue sedation with Propofol and Fentanyl Multilobar pneumonia, POA Replace in reverse isolation precaution for potential of tuberculosis Will defer abx selection to ID team, but fungal coverage may be necessary too We will check respiratory PCR, sputum studies and further recommendations per infectious disease Pneumothorax and Pneumomediastinum, POA As noted on chest CT, L>R. Patient also has pleural plaques suspicious for asbestosis and emphysema, consistent with his smoking history. Patient may benefit from the Chest tube and will defer to pulmonary expect he is Possible GI Bleed, POA GI bleed vs hemoptysis Patient was noted to have pink tinged sputum on admission. There is concern for GI bleed with his anemia. Family reports that patient does not consume much alcohol, but does take Aspirin frequently and Cris seltzer. GI consultation has been obtained and did not reveal any GI bleed Cachexia with severe protein calorie malnutrition and anemia, POA Patient is frail and cachetic and per family, has lost 1/3 of his weight of the last year. Dietary consult and early tube feeding planned when patient is more stable. Tobacco abuse, POA Will encourage cessation. VTE Prophylaxis: Sub-Q Enoxaparin VTE Mechanical Devices: Intermittant Pneumatic CD Resuscitation Status: CPR: Attempt Resuscitation Time spent 25 minutes Roxy Lowery MD Apr 18, 2017 18:20
--- NOTE | 2017-04-18 23:35 | NUR ---
Vent, sedation, General crepitus Vs as noted. Continues ventilated with sats low 90s on 50% fio2 PC/AC vent. Sats drop ot 90-91% after repositioning. Morenci alon catheter in place to ETT with balloon inflated per report to left lung. Left Chest tube in place with suction at 40 and draining nearly continuous air with small amount s/s fluid. Sedation Propofol 15mcg/kg/min and Fentanyl 75mcg/h continue. Crepitus noted from eyes to at least knees. Coello cath in place with isiah uop. Levophed gtt unchanged at 0.3mcg/kg/min. 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
--- NOTE | 2017-04-19 01:17 | ABG ---
DateTimeAnalyzed 14:55:20 -_ pH ____7.249 - 7.350 7.450 pCO2 ___54.8__ -mmHg 35.0 45.0 pO2 ___67.1__ -mmHg 80.0 100 HCO3- ___24.0__ -mmol/L 22.0 26.0 ABE ___-3.0__ -mmol/L -2.0 2.0 tHb ____9.1__ -g/dL 12.0 18.0 O2Hb ___92.8__ -% COHb ____1.8__ -% 1.5 MetHb ____0.0__ -% 0.4 1.5 sO2 ___94.3__ -% 95.0 AaDpO2 __228.7__ -mmHg FIO2 ___50.0__ -% Drawn By as - Date/Time Notified____ 15:00:00 -_ Notified By ams - Notified Whom dr Dayana - K+ ____4.1__ -mmol/L 3.5 5.0 Good test N/A -
[2017-04-21 15:09] LABS: Antiproteinase 3 (PR-3) Abs <3.5 U/mL (0.0-3.5); Perinuclear (P-ANCA) <1:20 titer (Neg:<1:20)
--- NOTE | 2017-04-27 14:43 | PATH ---
SURGICAL PATHOLOGY Attending Physician:See Additional MD CASE STATUS: Signed Out PATIENT NAME: Fabian Purdy PID: [id number] : 1950 DATE COLLECTED:04/17/2017 00:00 SPECIMEN: Pleural Fluid CLINICAL HISTORY: Pleural Fluid ICD-10 code not given FINAL DIAGNOSIS: PLEURAL FLUID, CYTOLOGY: NEGATIVE FOR MALIGNANT CELLS. ICD10 J90 NOTE: One Papanicolaou-stained slide and one cell block H&E slide are reviewed, which show predominately blood and amorphous acellular debris. No malignant cells are identified. GROSS DESCRIPTION: Received fresh on 04/22/2017 is approximately 0.1 cc of clear pink fluid. Prepared are one cell block and one Cytospin slide. Vo ICD-9 CODES: CPT CODES: 1: 83161, 64497, 05194 Electronically Signed Out Erin Jacobs MD [facility] Pathology [facility] [address], [place] [address] Technical component performed at [facility], [address] [place] [address] Ave[address], [place], [address]
== END 2017-04-19 01:19 | disposition admitted as inpatient to this hospital (09) | DRG 208 ==
LOC: SED 07:08 → EDBD 07:08 → EDUNIT# 07:08 → CCU 09:17
PROVIDERS: ADMIT Specialist; ATTEND Specialist
PROC: 5A1935Z Respiratory Ventilation, Less than 24 Consecutive Hours (ICD-10-PCS; principal; 2017-04-17 12:00)
DX: J96.02 Acute respiratory failure with hypercapnia (principal); A41.9 Sepsis, unspecified organism; J18.9 Pneumonia, unspecified organism; R40.2322 Coma scale, best motor response, extension, at arrival to emergency department; R40.2112 Coma scale, eyes open, never, at arrival to emergency department; R40.2212 Coma scale, best verbal response, none, at arrival to emergency department; R65.21 Severe sepsis with septic shock; E43 Unspecified severe protein-calorie malnutrition; Z68.1 Body mass index [BMI] 19.9 or less, adult; E87.2 Acidosis; R63.4 Abnormal weight loss